=== PATIENT | male | born 1935 | race Caucasian/White ===

== ENCOUNTER 2021-01-03 15:47 | Observation (INO) ==
[2021-01-03] MEDS ORDERED: ONDANSETRON INJ 2 MG/ML 2 ML VIAL IV STA (16:34)
[2021-01-03] MEDS ORDERED: MoRPHine SULFATE 2 MG/ML CARP IV STA (16:34)
--- NOTE | 2021-01-03 16:40 | Emergency Department Note ---
History of Present Illness General Chief complaint: Fall Stated complaint: FALL Time Seen by Provider: 01/03/21 16:13 Source: patient and family (Son who is at the bedside) Mode of arrival: ambulatory Limitations: no limitations History of Present Illness Maximum Pain Intensity: 6 This patient is a 85-year-old male who comes in after falling down a hill. He was pushing a lawnmower and he says he tripped and rolled down 10 to 20 feet on a grassy hill. He did not get struck by the lumbar. He said he just slipped and fell. He denies that he lost consciousness or passed out prior. He had no symptoms prior he tells me. Afterwards he had mid lumbar back pain and some nausea. He denies any headache he said he may have scraped his head but denies headache or neck pain. He denies any facial trauma or teeth or dental trauma no malocclusion no change in vision no neck pain or stiffness. Denies chest pain s hortness breath or pleurisy. No abdominal pain. No extremity pain or numbness or weakness. His only complaint is pain in his lumbar back that goes into his legs at and hips at times. It hurts worse with movement. It is better if he rests. He has no history of back issues he does have a history of having some left hip pain but is never had any surgery on either. He is on no blood thinners. His Covid vaccine is up-to-date. Home Medications Medication Instructions Recorded Confirmed Type aspirin [Aspir-Low] 81 mg PO DAILY 01/03/21 01/03/21 History atenolol 50 mg PO DAILY 01/03/21 01/03/21 History escitalopram oxalate 15 mg PO DAILY 01/03/21 01/03/21 History lisinopril 5 mg PO DAILY 01/03/21 01/03/21 History multivitamin [Multiple Vitamins] 1 tab PO DAILY 01/03/21 01/03/21 History turmeric root extract 0 mg PO AMPM 01/03/21 01/03/21 History Allergies Allergy/AdvReac Type Severity Reaction Status Date / Time felodipine AdvReac Unknown DROWSINESS Unverified 01/03/21 21:32 Past Med/Surg History Medical History (Updated 01/03/21 @ 23:10 by Artur Mcclain MD) CKD (chronic kidney disease), stage III Depression Dyslipidemia GERD (gastroesophageal reflux disease) HTN (hypertension) Surgical History (Updated 01/03/21 @ 20:59 by Filomena Todd PA-C) H/O hernia repair History of cholecystectomy Family History (Updated 01/03/21 @ 20:59 by Filomena Todd PA-C) Other Cancer Diabetes Heart disease Social History (Updated 01/03/21 @ 20:59 by Filomena Todd PA-C) Smoking Status: Former smoker Hx Alcohol Use: No Hx Substance Use: No Feels Safe at Home: Yes Immunizations: Past medical historyhypertension. Denies cardiac disease, str shannan, diabetes. Family historyhe recently lost a son and grandson. Social history he does not smoke or drink or use drugs. He lives locally. His son tells me there is been a lot of family stress due to recent deaths of relatives Review of Systems A total of 10 systems reviewed and were otherwise negative Physical Exam Vital Signs Vital Signs - 24 hr 01/03/21 15:48 01/03/21 17:12 01/03/21 20:19 Temperature 36.8 C Temperature Source Temporal Artery Scan Pulse Rate 60 67 Pulse Rate [Apical] 66 67 Pulse Rhythm Regular Pulse Rhythm [Apical] Regular Pulse Strength [Apical] Normal Respiratory Rate 18 18 18 Respiratory Effort / Characteristics Non-Labored Spontaneous Respiratory Depth Normal Respiratory Pattern Regular Blood Pressure 146/92 H Blood Pressure [Left Arm] 144/89 H 149/87 H Blood Pressure Mean 110 Blood Pressure Mean [Left Arm] 107 107 Blood Pressure Position [Left Arm] Lying Pulse Oximetry 97 96 95 Oxygen Delivery Method Room Air Room Air Room Air Sepsis Recent Fever Within 48 Hours No Sepsis New/Unexplained Change in Mental Status No Sepsis Action Taken by Nursing No Action Required General: Well developed well nourished older male who is alert and orient x3 and appears younger than stated age in no acute distress, breathing comfortably on room air. Normal speech HEENT: Normal cephalic atraumatic. Pupils are equal round and reactive to light. Extraocular movements are intact. Oropharynx is pink with moist mucous membranes. No swelling of the mouth lips or tongue. Neck: Supple with a midline trachea. No meningeal signs or stiffness, no JVD or bruits. No Stridor. Chest: Clear to auscultation bilaterally. No wheezes or rhonchi. No increased work of breathing. Heart: Regular rate and rhythm without murmurs or gallops. Abdomen: Soft nontender, nondistended without rebound guarding or rigidity. Extremities: No cyanosis clubbing or edema. No calf tenderness or assymetry. No shortening or deformity Spine/Back. Mildly tender to palpation in the central mid to upper lumbar spine. No CVA tenderness. No bruising or external signs of trauma. Pain is exacerbated with movement Skin: Good turgor without rashes. Neurologic exam: Cranial nerves two through 12 are intact. Motor and sensation are intact and symmetrical throughout. Course Administered Medications Discontinued Medications Ioversol (Optiray 320 125ml) 119 ml IV ONCE ONE Stop: 01/03/21 18:16 Last Admin: 01/03/21 18:15 Dose: 119 ml Documented by: [id number] Ketorolac Tromethamine (Ketorolac Tromethamine 15 Mg/Ml Vial) 15 mg IV NOW ONE Stop: 01/03/21 21:11 Last Admin: 01/03/21 21:58 Dose: 15 mg Documented by: [id number] Lidocaine (Lidocaine 5% 1 Patch) Confirm Administered Dose 1 patch TD .STK-MED ONE Stop: 01/03/21 20:17 Last Admin: 01/03/21 20:18 Dose: 1 patch Documented by: [id number] Lisinopril (Lisinopril 2.5 Mg Tab) 2.5 mg PO ONE ONE Stop: 01/03/21 21:16 Last Admin: 01/03/21 21:58 Dose: 2.5 mg Documented by: [id number] Morphine Sulfate (Morphine Sulfate 2 Mg/Ml Carp) 2 mg IV NOW STA Stop: 01/03/21 16:35 Last Admin: 01/03/21 17:05 Dose: 2 mg Documented by: [id number] Ondansetron HCl (Ondansetron Inj 2 Mg/Ml 2 Ml Vial) 4 mg IV NOW STA Stop: 01/03/21 16:35 Last Admin: 01/03/21 17:05 Dose: 4 mg Documented by: [id number] Medical Decision Making Differential Diagnosis Trauma, internal injuries, syncope, arrhythmia, orthopedic injuries, spinal injuries, Covid, electrolyte or metabolic abnormality Medical Records Attestation: I reviewed the patient's medical records. Home Medications Current Medication List: was personally reviewed by me Laboratory Data Attestation: I reviewed the patient's lab results. Result diagrams: 01/03/21 17:08 01/03/21 17:08 Lab Results 01/03/21 01/03/21 01/03/21 Range/Units 17:08 17:08 17:08 WBC 9.17 (4.8-10.8) K/uL RBC 4.24 L (4.7-6.1) M/uL Hgb 13.7 L (14.0-18.0) g/dL POC Hgb (14.0-18.0) g/dl Hct 40.1 L (42-52) % POC Hct (42-52) % MCV 94.6 (80-100) fL MCH 32.3 (25-34) pg MCHC 34.2 (32-36) g/dL RDW Std Deviation 43.4 (36.4-46.3) fL RDW Coeff of Dean 12.7 (11.5-14.5) % Plt Count 213 (130-400) K/uL MPV 10.0 (7.4-10.4) fL Immature Gran % (Auto) 0.4 % Neut % (Auto) 69.9 % Lymph % (Auto) 19.6 % [place] % (Auto) 9.5 % Eos % (Auto) 0.5 % Baso % (Auto) 0.1 % Neut # (Auto) 6.40 (1.4-6.5) K/uL Lymph # (Auto) 1.80 (1.2-3.4) K/uL [place] # (Auto) 0.87 H (0.11-0.59) K/uL Eos # (Auto) 0.05 (0-0.5) K/uL Baso # (Auto) 0.01 (0-0.2) K/uL Immature Gran # (Auto) 0.04 H (0.00-0.02) K/uL PT 10.0 (9.0-12.0) Seconds INR 1.0 (0.9-1.1) APTT 21.7 (21.0-31.0) Seconds PTT Ratio 0.8 POC Sodium (135-144) mmol/L Sodium 135 L (136-145) mmol/L POC Potassium (3.3-5.0) mmol/L Potassium 4.7 (3.5-5.1) mmol/L POC Chloride (101-112) mmol/L Chloride 102 (98-107) mmol/L Carbon Dioxide 27 (21-32) mmol/L POC Total CO2 (24-31) mmol/L Anion Gap 6.0 (3-11) POC Anion Gap (16-25) mmol/L POC BUN (7-18) mg/dl BUN 19 H (7-18) mg/dl Creatinine 1.25 (0.6-1.4) mg/dl POC Creatinine (0.6-1.3) mg/dl Est Cr Clr Drug Dosing 43.2 ml/min Est GFR ( Amer) 60.5 ml/min Est GFR (Non-Af Amer) 52.2 ml/min BUN/Creatinine Ratio 15.1 (10-20) Glucose 93 (70-99) mg/dl POC Glucose (other) (70-99) mg/dl Calcium 9.8 (8.5-10.1) mg/dl POC Ioniz Calcium Nabila (1.12-1.32) mmol/l Magnesium 2.1 (1.8-2.4) mg/dl Total Bilirubin 0.7 (0.2-1) mg/dl AST 27 (15-37) U/L ALT 34 (12-78) U/L Alkaline Phosphatase 56 (45-117) U/L Troponin I < 0.015 (0-0.045) ng/ml Total Protein 8.0 (6.4-8.2) gm/dl Albumin 4.0 (3.4-5.0) gm/dl Globulin 4.0 (2.5-4.0) gm/dl Albumin/Globulin Ratio 1.0 (0.9-2) TSH 3.690 (0.300-4.500) uIu/ml 01/03/21 Range/Units 17:13 WBC (4.8-10.8) K/uL RBC (4.7-6.1) M/uL Hgb (14.0-18.0) g/dL POC Hgb 13.6 L (14.0-18.0) g/dl Hct (42-52) % POC Hct 40 L (42-52) % MCV (80-100) fL MCH (25-34) pg MCHC (32-36) g/dL RDW Std Deviation (36.4-46.3) fL RDW Coeff of Dean (11.5-14.5) % Plt Count (130-400) K/uL MPV (7.4-10.4) fL Immature Gran % (Auto) % Neut % (Auto) % Lymph % (Auto) % [place] % (Auto) % Eos % (Auto) % Baso % (Auto) % Neut # (Auto) (1.4-6.5) K/uL Lymph # (Auto) (1.2-3.4) K/uL [place] # (Auto) (0.11-0.59) K/uL Eos # (Auto) (0-0.5) K/uL Baso # (Auto) (0-0.2) K/uL Immature Gran # (Auto) (0.00-0.02) K/uL PT (9.0-12.0) Seconds INR (0.9-1.1) APTT (21.0-31.0) Seconds PTT Ratio POC Sodium 136 (135-144) mmol/L Sodium (136-145) mmol/L POC Potassium 5.0 (3.3-5.0) mmol/L Potassium (3.5-5.1) mmol/L POC Chloride 101 (101-112) mmol/L Chloride (98-107) mmol/L Carbon Dioxide (21-32) mmol/L POC Total CO2 23 L (24-31) mmol/L Anion Gap (3-11) POC Anion Gap 17.0 (16-25) mmol/L POC BUN 22 H (7-18) mg/dl BUN (7-18) mg/dl Creatinine (0.6-1.4) mg/dl POC Creatinine 1.3 (0.6-1.3) mg/dl Est Cr Clr Drug Dosing ml/min Est GFR ( Amer) ml/min Est GFR (Non-Af Amer) ml/min BUN/Creatinine Ratio (10-20) Glucose (70-99) mg/dl POC Glucose (other) 98 (70-99) mg/dl Calcium (8.5-10.1) mg/dl POC Ioniz Calcium [place] 1.14 (1.12-1.32) mmol/l Magnesium (1.8-2.4) mg/dl Total Bilirubin (0.2-1) mg/dl AST (15-37) U/L ALT (12-78) U/L Alkaline Phosphatase (45-117) U/L Troponin I (0-0.045) ng/ml Total Protein (6.4-8.2) gm/dl Albumin (3.4-5.0) gm/dl Globulin (2.5-4.0) gm/dl Albumin/Globulin Ratio (0.9-2) TSH (0.300-4.500) uIu/ml Imaging Data Radiologist's Impression: Abdomen/Pelvis CT 01/03/21 16:[address] WITH CONTRAST, ABDOMEN AND PELVIS CT WITH INTRAVENOUS CONTRAST CT DOSE: HISTORY: Back pain. fall TECHNIQUE: Multiaxial CT images of the chest were performed following the intravenous administration of contrast. A dose lowering technique was utilized adhering to the principles of ALARA. COMPARISON: None. FINDINGS: Chest CT: No acute fractures within the visualized osseous structures of the chest. No pneumothorax. Small amount of mucoid material within the trachea. Remaining central airways are patent. Calcified left hilar lymph nodes with a punctate calcified granuloma within the left lower lobe. No focal lung consolidations. Normal esophagus. No lymphadenopathy identified within the chest. The heart is normal in size. Normal caliber thoracic aorta with no evidence for a dissection. Severe calcified plaque within the coronary arteries. No pleural or pericardial effusions. The main pulmonary arteries are patent. No mediastinal hematoma. Abdomen/pelvis CT: Mild to moderate acute superior endplate compression fracture at L1 as well as the fracture through the tip of the L1 spinous process is again noted. This is better appreciated on the same day lumbar spine CT. No pneumoperitoneum. No pneumatosis. Tiny fat-containing right-sided umbilical hernia. Mild paravertebral edema at L1 likely due to the acute fracture. No retroperitoneal hematoma or lymphadenopathy. Cholecystectomy. This likely accounts for the mild bile duct dilatation. The main pancreatic duct is also distended distally measuring up to 5 mm. The main portal vein is patent. Punctate calcified granuloma seen within the spleen. The adrenal glands and kidneys are within normal limits. No hydronephrosis. There are few punctate calcifications within the pancreas suggestive of chronic pancreatitis. No evidence for acute pancreatitis. There is a 6.7 x 6.4 cm infrarenal abdominal aortic aneurysm. 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 The bladder is unremarkable. No pelvic free fluid. Colonic diverticulosis. No evidence for acute diverticulitis. No bowel wall thickening or obstruction. Normal appendix. IMPRESSION: 1. The L1 fractures are better appreciated on the same day lumbar spine CT. 2. No acute traumatic process within the chest. 3. A 6.7 x 6.4 cm infrarenal abdominal aortic aneurysm. Follow-up nonemergent vascular surgery consultation recommended. 4. 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 5. Additional findings as described above. ACT 112: Negative or not required by law. Electronically signed by: Gerald Hood M.D. 01/03/2021 7:[address] 01/03/21 16:[address] WITH CONTRAST, ABDOMEN AND PELVIS CT WITH INTRAVENOUS CONTRAST CT DOSE: HISTORY: Back pain. fall TECHNIQUE: Multiaxial CT images of the chest were performed following the intravenous administration of contrast. A dose lowering technique was utilized adhering to the principles of ALARA. COMPARISON: None. FINDINGS: Chest CT: No acute fractures within the visualized osseous structures of the chest. No pneumothorax. Small amount of mucoid material within the trachea. Remaining central airways are patent. Calcified left hilar lymph nodes with a punctate calcified granuloma within the left lower lobe. No focal lung consolidations. Normal esophagus. No lymphadenopathy identified within the chest. The heart is normal in size. Normal caliber thoracic aorta with no evidence for a dissection. Severe calcified plaque within the coronary arteries. No pleural or pericardial effusions. The main pulmonary arteries are patent. No mediastinal hematoma. Abdomen/pelvis CT: Mild to moderate acute superior endplate compression fracture at L1 as well as the fracture through the tip of the L1 spinous process is again noted. This is better appreciated on the same day lumbar spine CT. No pneumoperitoneum. No pneumatosis. Tiny fat-containing right-sided umbilical hernia. Mild paravertebral edema at L1 likely due to the acute fracture. No retroperitoneal hematoma or lymphadenopathy. Cholecystectomy. This likely accounts for the mild bile duct dilatation. The main pancreatic duct is also distended distally measuring up to 5 mm. The main portal vein is patent. Punctate calcified granuloma seen within the spleen. The adrenal glands and kidneys are within normal limits. No hydronephrosis. There are few punctate calcifications within the pancreas suggestive of chronic pancreatitis. No evidence for acute pancreatitis. There is a 6.7 x 6.4 cm infrarenal abdominal aortic aneurysm. 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 The bladder is unremarkable. No pelvic free fluid. Colonic diverticulosis. No evidence for acute diverticulitis. No bowel wall thickening or obstruction. Normal appendix. IMPRESSION: 1. The L1 fractures are better appreciated on the same day lumbar spine CT. 2. No acute traumatic process within the chest. 3. A 6.7 x 6.4 cm infrarenal abdominal aortic aneurysm. Follow-up nonemergent vascular surgery consultation recommended. 4. 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 5. Additional findings as described above. ACT 112: Negative or not required by law. Electronically signed by: Gerald Hood M.D. 01/03/2021 7:07 PM Chest X-Ray 01/03/21 16:32 XR chest 1V portable HISTORY: fall COMPARISON: Chest 09/02/2010. FINDINGS: No pneumothorax. No pleural effusions. The heart remains mildly enlarged. There is a tortuous thoracic aorta. Old, healed left-sided rib fractures, unchanged. No focal lung consolidations to suggest pneumonia. No evidence for pulmonary edema. IMPRESSION: No acute process. ACT 112: Negative or not required by law. Electronically signed by: Gerald Hood M.D. 01/03/2021 5:[address] 01/03/21 16:[address] with intravenous contrast CT DOSE: 642.41 mGy.cm HISTORY: Low back pain. trauma can recon from CT abd/pelvis TECHNIQUE: Multiaxial CT images of the lumbar spine were performed and reformatted in the sagittal and coronal plane following the intravenous administration of contrast. A dose lowering technique was utilized adhering to the principles of ALARA. COMPARISON: None. FINDINGS: There is an acute superior endplate compression fracture at L1. This demonstrates up to 20% loss of height anteriorly. No associated retropulsion. There is 5 mm of anterolisthesis of L4 and L5. Moderate to severe facet degenerative changes within the lower lumbar spine. Mild disc space narrowing at L4-L5. The sacrum appears intact. Possible small oblique fracture through the superior tip of the L1 spinous process. The pedicles and lamina of L1 appear intact. IMPRESSION: 1. An acute mild to moderate superior endplate compression fracture at L1. No associated retropulsion. 2. Possible small oblique fracture through the superior tip of the L1 spinous process. ACT 112: Negative or not required by law. Electronically signed by: Gerald Hood M.D. 01/03/2021 6:52 PM ECG Data Attestation: I personally reviewed and interpreted this ECG as follows: Indication: + weakness Rate (beats per minute): 67 Rhythm: + normal sinus ECG Intervals/blocks: + First degree AV block, + Normal QRS, + Normal QT and + Normal HI ECG ST segments: + Normal ST segments ECG Findings: + LVH; no PACs and no PVCs Comparison ECG Date: from (09/02/10) Change: no significant change MDM Narrative This Patient comes in as described above it it does sound like it was mechanical fall. The patient says that he slipped. His only complaint seems to be back pain. It does hurt worse with movement given his fall I did order a CAT scan of the chest abdomen and pelvis and with reconstructions of the lumbar spine. IV access was established blood work was obtained. The son talk to me outside the room after seeing the patient says that he has been under tremendous amount of stress lately. He is concerned that some of this could have played a role today. In light of this, I did do a cardiac type work-up as well. This included EKG and enzymes and a chest x-ray. He was reassessed frequently. I- STAT labs were obtained to get a quick creatinine prior to CAT scan. For pain, he was given morphine 2 mg IV and Zofran 4 mg IV. His son is at the bedside and driving. He has no significant electrolyte or metabolic abnormalities. He has nothing to suggest or arrhythmia. CAT scans of his chest abdomen pelvis to show a lumbar 1 fracture. He also has a large aneurysm which will need follow-up with vascular surgery. I do not think his back pain is from the aneurysm as he does have a new lumbar fracture but I do think he needs to be admitted for pain management and further treatment and evaluation. I have consulted Dr. Rowley to see him in the ER for these measures. Continuous cardiac monitoring: Given the patient fall, he was placed on a continuous radiographer cardiac catheterization call: ED an order was placed in the EMR. The patient was noted to be in normal sinus room with a pulse of 60 upon my interpretation. Impression & Plan Compression fx, lumbar spine, Fall, Back pain, AAA (abdominal aortic aneurysm), Lab test negative for COVID-19 virus Discharge Plan Visit Data Chief Complaint: Fall Stated Complaint: FALL ED Provider: Artur Mcclain Discharge Problem: Compression fx, lumbar spine, Fall, Back pain, AAA (abdominal aortic aneurysm), Lab test negative for COVID-19 virus Discharge Instructions Interventions: ED Discharge Assessment Last Done: 01/03/21 22:19 Discharge Problem: Compression fx, lumbar spine Qualifiers: Encounter type: initial encounter Lumbar vertebra fracture level: L1 Qualified Code(s): S32.010A - Wedge compression fracture of first lumbar vertebra, initial encounter for closed fracture Fall Qualifiers: Encounter type: initial encounter Qualified Code(s): W19.XXXA - Unspecified fall, initial encounter Back pain Qualifiers: Back pain location: low back pain Chronicity: acute Back pain laterality: midline Sciatica presence: without sciatica Qualified Code(s): M54.5 - Low back pain AAA (abdominal aortic aneurysm) Qualifiers: Presence of rupture: without rupture Qualified Code(s): I71.4 - Abdominal aortic aneurysm, without rupture
[2021-01-03 17:19] LABS: Basophils # (auto) 0.01 K/uL (0-0.2); Basophils % (auto) 0.1 %; Eosinophils # (auto) 0.05 K/uL (0-0.5); Eosinophils % (auto) 0.5 %; Hematocrit (blood only) 40.1 % (42-52); Hemoglobin 13.7 g/dL (14.0-18.0); Immature Granulocytes # (auto) 0.04 K/uL (0.00-0.02); Immature Granulocytes % (auto) 0.4 %; Lymphocytes % (auto) 19.6 %; Mean Corpuscular Hemoglobin 32.3 pg (25-34); Mean Corpuscular Hgb Conc 34.2 g/dL (32-36); Mean Corpuscular Volume 94.6 fL (80-100); Monocytes # (auto) 0.87 K/uL (0.11-0.59); Monocytes % (auto) 9.5 %; Neutrophils % (auto) 69.9 %; Platelet Count 213 K/uL (130-400); RDW Coefficient of Variation 12.7 % (11.5-14.5); RDW Standard Deviation 43.4 fL (36.4-46.3); Red Blood Count 4.24 M/uL (4.7-6.1); White Blood Count 9.17 K/uL (4.8-10.8)
[2021-01-03 17:27] LABS: iSTAT Creatinine 1.3 mg/dl (0.6-1.3); iSTAT Hemoglobin 13.6 g/dl (14.0-18.0); iSTAT Ionized Calcium 1.14 mmol/l (1.12-1.32)
[2021-01-03 17:36] LABS: Partial Thromboplastin Ratio 0.8; Partial Thromboplastin Time 21.7 Seconds (21.0-31.0)
--- NOTE | 2021-01-03 17:37 | XRay Report ---
XR chest 1V portable HISTORY: fall COMPARISON: Chest 09/02/2010. FINDINGS: No pneumothorax. No pleural effusions. The heart remains mildly enlarged. There is a tortuo us thoracic aorta. Old, healed left-sided rib fractures, unchanged. No focal lung consolidations to s uggest pneumonia. No evidence for pulmonary edema. IMPRESSION: No acute process. ACT 112: Negative or not required by law. Electronically signed by: Gerald Hood M.D. 01/03/2021 5:36 PM
[2021-01-03 17:42] LABS: Alanine Aminotransferase 34 U/L (12-78); Aspartate Aminotransferase 27 U/L (15-37); BUN Creatinine Ratio 15.1 (10-20); Blood Urea Nitrogen 19 mg/dl (7-18); Calcium 9.8 mg/dl (8.5-10.1); Carbon Dioxide 27 mmol/L (21-32); Chloride 102 mmol/L (98-107); Creatinine Clr Calc Pharmacy 43.2 ml/min; Est GFR (African American) 60.5 ml/min; Est GFR (Non-African American) 52.2 ml/min; Glucose 93 mg/dl (70-99); Magnesium 2.1 mg/dl (1.8-2.4); Potassium 4.7 mmol/L (3.5-5.1); Sodium 135 mmol/L (136-145)
[2021-01-03 17:52] LABS: Alkaline Phosphatase 56 U/L (45-117); Bilirubin,Total 0.7 mg/dl (0.2-1); Troponin I < 0.015 ng/ml (0-0.045)
[2021-01-03] MEDS ORDERED: OPTIRAY 320 125ml IV ONE (18:15)
--- NOTE | 2021-01-03 18:53 | CT Scan Report ---
LUMBAR SPINE CT with intravenous contrast CT DOSE: 642.41 mGy.cm HISTORY: Low back pain. trauma can recon from CT abd/pelvis TECHNIQUE: Multiaxial CT images of the lumbar spine were performed and reformatted in the sagittal an d coronal plane following the intravenous administration of contrast. A dose lowering technique was utilized adhering to the principles of ALARA. COMPARISON: None. FINDINGS: There is an acute superior endplate compression fracture at L1. This demonstrates up to 20% loss of height anteriorly. No associated retropulsion. There is 5 mm of anterolisthesis of L4 and L5 . Moderate to severe facet degenerative changes within the lower lumbar spine. Mild disc space narrow ing at L4-L5. The sacrum appears intact. Possible small oblique fracture through the superior tip of the L1 spinous process. The pedicles and lamina of L1 appear intact. IMPRESSION: 1. An acute mild to moderate superior endplate compression fracture at L1. No associated retropulsion . 2. Possible small oblique fracture through the superior tip of the L1 spinous process. ACT 112: Negative or not required by law. Electronically signed by: Gerald Hood M.D. 01/03/2021 6:52 PM
--- NOTE | 2021-01-03 19:08 | CT Scan Report ---
CHEST CT WITH CONTRAST, ABDOMEN AND PELVIS CT WITH INTRAVENOUS CONTRAST CT DOSE: HISTORY: Back pain. fall TECHNIQUE: Multiaxial CT images of the chest were performed following the intravenous administration of contrast. A dose lowering technique was utilized adhering to the principles of ALARA. COMPARISON: None. FINDINGS: Chest CT: No acute fractures within the visualized osseous structures of the chest. No pneumothorax. Small amount of mucoid material within the trachea. Remaining central airways are patent. Calcified l eft hilar lymph nodes with a punctate calcified granuloma within the left lower lobe. No focal lung c onsolidations. Normal esophagus. No lymphadenopathy identified within the chest. The heart is normal in size. Normal caliber thoracic aorta with no evidence for a dissection. Severe calcified plaque wit hin the coronary arteries. No pleural or pericardial effusions. The main pulmonary arteries are paten t. No mediastinal hematoma. Abdomen/pelvis CT: Mild to moderate acute superior endplate compression fracture at L1 as well as the fracture through the tip of the L1 spinous process is again noted. This is better appreciated on the same day lumbar spine CT. No pneumoperitoneum. No pneumatosis. Tiny fat-containing right-sided umbil ical hernia. Mild paravertebral edema at L1 likely due to the acute fracture. No retroperitoneal deysi romain or lymphadenopathy. Cholecystectomy. This likely accounts for the mild bile duct dilatation. The main pancreatic duct is also distended distally measuring up to 5 mm. The main portal vein is patent . Punctate calcified granuloma seen within the spleen. The adrenal glands and kidneys are within norm al limits. No hydronephrosis. There are few punctate calcifications within the pancreas suggestive of chronic pancreatitis. No evidence for acute pancreatitis. There is a 6.7 x 6.4 cm infrarenal abdomin al aortic aneurysm. 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 Th e bladder is unremarkable. No pelvic free fluid. Colonic diverticulosis. No evidence for acute divert iculitis. No bowel wall thickening or obstruction. Normal appendix. IMPRESSION: 1. The L1 fractures are better appreciated on the same day lumbar spine CT. 2. No acute traumatic process within the chest. 3. A 6.7 x 6.4 cm infrarenal abdominal aortic aneurysm. Follow-up nonemergent vascular surgery consul tation recommended. 4. 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 5. Additional findings as described above. ACT 112: Negative or not required by law. Electronically signed by: Gerald Hood M.D. 01/03/2021 7:07 PM
[2021-01-03] MEDS ORDERED: ACETAMINOPHEN 325 MG TAB PO PRN (20:00)
[2021-01-03] MEDS ORDERED: LIDOCAINE 5% 1 PATCH TD ONE (20:16)
[2021-01-03] MEDS ORDERED: SODIUM CHLORIDE 0.9% 1000ML 1,000 ML IV ONE (20:51)
--- NOTE | 2021-01-03 21:03 | History & Physical Report ---
Date of Service January 03, 2021 Assessment & Plan (1) Compression fx, lumbar spine: (2) Abnormal CT scan: (3) HTN (hypertension): (4) Depression: (5) CKD (chronic kidney disease), stage III: History, PMH, PE completed by Filomena Todd PA-C Assessment and Plan per Dr Velasquez. History of Present Illness Chief Complaint: Fall and back pain Primary Care Provider: Jermaine English MD Pt is 85 y/o M with PMH HTN, HLD, CKD III, GERD, depression presented to ER with complaint of fall and back pain. Patient states prior to arrival he was mowing grass with a push lawnmower when he lost his balance on a hill and fell and rolled down hill. Denies being struck with lawnmower. Patient states had instant pain to mid/lower back and was unable to get up. He reports his son was able to help get him up on his feet and he was able to walk with pain to back. Denies loss of consciousness. Denies neck pain, chest pain, abdominal pain, upper extremity pain, lower extremity pain or paresthesias. Denies fever/chills, diaphoresis, N/V/D/C, [place], dizziness, syncope, vision changes, CP, SOB, orthopnea, palpitations, cough, sore throat, choking, otalgia, rhinorrhea, extremity weakness, extremity edema, rashes, urinary symptoms. In ER had lumbar spine CT: An acute mild to moderate superior endplate compression fracture at L1. No associated retropulsion. Possible small oblique fracture through the superior tip of the L1 spinous process. Allergies Allergy/AdvReac Type Severity Reaction Status Date / Time felodipine AdvReac Unknown DROWSINESS Unverified 01/03/21 21:32 Home Medications Medication Instructions Recorded Confirmed Type aspirin [Aspir-Low] 81 mg PO DAILY 01/03/21 01/03/21 History atenolol 50 mg PO DAILY 01/03/21 01/03/21 History escitalopram oxalate 15 mg PO DAILY 01/03/21 01/03/21 History lisinopril 5 mg PO DAILY 01/03/21 01/03/21 History multivitamin [Multiple Vitamins] 1 tab PO DAILY 01/03/21 01/03/21 History turmeric root extract 0 mg PO AMPM 01/03/21 01/03/21 History Past Med/Surg History Medical History (Updated 01/03/21 @ 23:10 by Artur Mcclain MD) CKD (chronic kidney disease), stage III Depression Dyslipidemia GERD (gastroesophageal reflux disease) HTN (hypertension) Surgical History H/O hernia repair History of cholecystectomy Family History Other Cancer Diabetes Heart disease Social History Smoking Status: Former smoker Smoking End Date: pt states 50 years ago; Second Hand Exposure: No; Do You Dip or Chew Tobacco: No; Hx Alcohol Use: No Hx Substance Use: No Preferred Language: Amharic Communication Ability: Effective Library Paraprofessional Required: No Beliefs That Will Affect Care: None Current Living Situation: Family Current Living Situation Comment: Lives with sonOnesimo Other Information That Helps Us Care for You: No Feels Safe at Home: Yes Safety Concerns: Feels Safe At This Time Assistive Devices: Denture - Upper, Denture - Lower and Glasses Review of Systems Review of Systems: All systems reviewed & are unremarkable except as noted in HPI & below Physical Exam Physical Exam: General: no distress, WDWN Head: normocephalic, atraumatic Eyes: PERRL, EOM's intact, conjunctiva non-injected, anicteric ENT: normal inspection external ears, nose, mucous membranes moist Neck: supple, trachea midline, non-tender, ROM intact Lungs: clear, no respiratory distress, no wheezing/rhonchi/rales CV: RRR, +systolic murmur, no pretibial edema Abd: normal BS, soft, non-tender Back: +tenderness to palpation lower back over spinous process Ext: no cyanosis, no calf tenderness; pedal pushes and pulls intact bilaterally, sensation to light touch intact; ROM bilateral upper extremities intact Neuro: A&O x 3, no focal deficits noted, normal affect Skin: warm, dry Results & Data Results & Data ([facility]) Vital Signs (Past 12 Hours) Vital Signs Temp Pulse Pulse Resp BP BP Pulse Ox 01/03/21 20:19 67 18 149/87 H 95 01/03/21 17:12 67 66 18 144/89 H 96 01/03/21 15:48 36.8 C 60 18 146/92 H 97 Laboratory Results Short CBC 01/03/21 Range/Units 17:08 WBC 9.17 (4.8-10.8) K/uL Hgb 13.7 L (14.0-18.0) g/dL Hct 40.1 L (42-52) % Plt Count 213 (130-400) K/uL BMP 01/03/21 17:08 Sodium 135 L Potassium 4.7 Chloride 102 Carbon Dioxide 27 BUN 19 H Creatinine 1.25 Glucose 93 Calcium 9.8 Cardiac Enzymes 01/03/21 Range/Units 17:08 Troponin I < 0.015 (0-0.045) ng/ml Liver Function 01/03/21 Range/Units 17:08 Total Bilirubin 0.7 (0.2-1) mg/dl AST 27 (15-37) U/L ALT 34 (12-78) U/L Alkaline Phosphatase 56 (45-117) U/L Albumin 4.0 (3.4-5.0) gm/dl Diagnostic Findings Abdomen/Pelvis CT 01/03/21 16:[address] WITH CONTRAST, ABDOMEN AND PELVIS CT WITH INTRAVENOUS CONTRAST CT DOSE: HISTORY: Back pain. fall TECHNIQUE: Multiaxial CT images of the chest were performed following the intravenous administration of contrast. A dose lowering technique was utilized adhering to the principles of ALARA. COMPARISON: None. FINDINGS: Chest CT: No acute fractures within the visualized osseous structures of the chest. No pneumothorax. Small amount of mucoid material within the trachea. Remaining central airways are patent. Calcified left hilar lymph nodes with a punctate calcified granuloma within the left lower lobe. No focal lung consolidations. Normal esophagus. No lymphadenopathy identified within the chest. The heart is normal in size. Normal caliber thoracic aorta with no evidence for a dissection. Severe calcified plaque within the coronary arteries. No pleural or pericardial effusions. The main pulmonary arteries are patent. No mediastinal hematoma. Abdomen/pelvis CT: Mild to moderate acute superior endplate compression fracture at L1 as well as the fracture through the tip of the L1 spinous process is again noted. This is better appreciated on the same day lumbar spine CT. No pneumoperitoneum. No pneumatosis. Tiny fat-containing right-sided umbilical hernia. Mild paravertebral edema at L1 likely due to the acute fracture. No retroperitoneal hematoma or lymphadenopathy. Cholecystectomy. This likely accounts for the mild bile duct dilatation. The main pancreatic duct is also distended distally measuring up to 5 mm. The main portal vein is patent. Punctate calcified granuloma seen within the spleen. The adrenal glands and kidneys are within normal limits. No hydronephrosis. There are few punctate calcifications within the pancreas suggestive of chronic pancreatitis. No evidence for acute pancreatitis. There is a 6.7 x 6.4 cm infrarenal abdominal aortic aneurysm. 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 The bladder is unremarkable. No pelvic free fluid. Colonic diverticulosis. No evidence for acute diverticulitis. No bowel wall thickening or obstruction. Normal appendix. IMPRESSION: 1. The L1 fractures are better appreciated on the same day lumbar spine CT. 2. No acute traumatic process within the chest. 3. A 6.7 x 6.4 cm infrarenal abdominal aortic aneurysm. Follow-up nonemergent va scular surgery consultation recommended. 4. 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 5. Additional findings as described above. ACT 112: Negative or not required by law. Electronically signed by: Gerald Hood M.D. 01/03/2021 7:[address] 01/03/21 16:[address] WITH CONTRAST, ABDOMEN AND PELVIS CT WITH INTRAVENOUS CONTRAST CT DOSE: HISTORY: Back pain. fall TECHNIQUE: Multiaxial CT images of the chest were performed following the intravenous administration of contrast. A dose lowering technique was utilized adhering to the principles of ALARA. COMPARISON: None. FINDINGS: Chest CT: No acute fractures within the visualized osseous structures of the chest. No pneumothorax. Small amount of mucoid material within the trachea. Remaining central airways are patent. Calcified left hilar lymph nodes with a punctate calcified granuloma within the left lower lobe. No focal lung consolidations. Normal esophagus. No lymphadenopathy identified within the chest. The heart is normal in size. Normal caliber thoracic aorta with no evidence for a dissection. Severe calcified plaque within the coronary arteries. No pleural or pericardial effusions. The main pulmonary arteries are patent. No mediastinal hematoma. Abdomen/pelvis CT: Mild to moderate acute superior endplate compression fracture at L1 as well as the fracture through the tip of the L1 spinous process is again noted. This is better appreciated on the same day lumbar spine CT. No pneumoperitoneum. No pneumatosis. Tiny fat-containing right-sided umbilical hernia. Mild paravertebral edema at L1 likely due to the acute fracture. No retroperitoneal hematoma or lymphadenopathy. Cholecystectomy. This likely accounts for the mild bile duct dilatation. The main pancreatic duct is also distended distally measuring up to 5 mm. The main portal vein is patent. Punctate calcified granuloma seen within the spleen. The adrenal glands and kidneys are within normal limits. No hydronephrosis. There are few punctate calcifications within the pancreas suggestive of chronic pancreatitis. No evidence for acute pancreatitis. There is a 6.7 x 6.4 cm infrarenal abdominal aortic aneurysm. 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 The bladder is unremarkable. No pelvic free fluid. Colonic diverticulosis. No evidence for acute diverticulitis. No bowel wall thickening or obstruction. Normal appendix. IMPRESSION: 1. The L1 fractures are better appreciated on the same day lumbar spine CT. 2. No acute traumatic process within the chest. 3. A 6.7 x 6.4 cm infrarenal abdominal aortic aneurysm. Follow-up nonemergent vascular surgery consultation recommended. 4. 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 5. Additional findings as described above. ACT 112: Negative or not required by law. Electronically signed by: Gerald Hood M.D. 01/03/2021 7:07 PM Chest X-Ray 01/03/21 16:32 XR chest 1V portable HISTORY: fall COMPARISON: Chest 09/02/2010. FINDINGS: No pneumothorax. No pleural effusions. The heart remains mildly enlarged. There is a tortuous thoracic aorta. Old, healed left-sided rib fractures, unchanged. No focal lung consolidations to suggest pneumonia. No evidence for pulmonary edema. IMPRESSION: No acute process. ACT 112: Negative or not required by law. Electronically signed by: Gerald Hood M.D. 01/03/2021 5:[address] 01/03/21 16:[address] with intravenous contrast CT DOSE: 642.41 mGy.cm HISTORY: Low back pain. trauma can recon from CT abd/pelvis TECHNIQUE: Multiaxial CT images of the lumbar spine were performed and reformatted in the sagittal and coronal plane following the intravenous administration of contrast. A dose lowering technique was utilized adhering to the principles of ALARA. COMPARISON: None. FINDINGS: There is an acute superior endplate compression fracture at L1. This demonstrates up to 20% loss of height anteriorly. No associated retropulsion. There is 5 mm of anterolisthesis of L4 and L5. Moderate to severe facet degenerative changes within the lower lumbar spine. Mild disc space narrowing at L4-L5. The sacrum appears intact. Possible small oblique fracture through the superior tip of the L1 spinous process. The pedicles and lamina of L1 appear intact. IMPRESSION: 1. An acute mild to moderate superior endplate compression fracture at L1. No associated retropulsion. 2. Possible small oblique fracture through the superior tip of the L1 spinous process. ACT 112: Negative or not required by law. Electronically signed by: Gerald Hood M.D. 01/03/2021 6:52 PM Supervising Physician Co-Signing Physician Notes IM ATTENDING : Patient seen and examined. History obtained from patient and records. Preceding documentation by Ms. Filomena Todd PA-C reviewed. FINAL ASSESSMENT AND PLAN as follows : Lumbar compression fracture secondary to fall Hypertension, slight elevated secondary discomfort AAA (6.7cm x 6.4cm) incidental finding on imaging Chronic anemia, hemoglobin at baseline Past tobacco abuse OBS GMF Analgesia, Lidoderm patch trial Outpatient Vascular Surgery consultation for AAA DVT prophylaxis. Lovenox subcu Full code Patient son requesting updates from providers. Mr. Onesimo Olivares, contact #[phone]. Text document was generated using [employer] voice recognition software. It may contain grammatical or spelling errors. Kindly contact undersigned for clarification of any documentation item in question.
[2021-01-03] MEDS ORDERED: KETOROLAC TROMETHAMINE 15 MG/ML VIAL IV ONE (21:10)
[2021-01-03] MEDS ORDERED: lisinopril 2.5 MG TAB PO ONE (21:15)
[2021-01-03] MEDS ORDERED: HYDROmorphone INJ 0.5 MG/0.5 ML SYR IV PRN (22:52)
[2021-01-03] MEDS ORDERED: PROMETHAZINE HCL 6.25 MG in SODIUM CHLORIDE 0.9% 50 ML IV PRN (22:52)
[2021-01-03] MEDS ORDERED: IBUPROFEN 200 MG TAB PO PRN (22:52)
[2021-01-04] MEDS: traMADol HCL 50 MG TABLET PO PRN ×4 (00:17→15:22)
[2021-01-04 08:24] LABS: Basophils # (auto) 0.01 K/uL (0-0.2); Basophils % (auto) 0.2 %; Eosinophils # (auto) 0.11 K/uL (0-0.5); Hematocrit (blood only) 39.8 % (42-52); Hemoglobin 13.1 g/dL (14.0-18.0); Immature Granulocytes # (auto) 0.01 K/uL (0.00-0.02); Immature Granulocytes % (auto) 0.2 %; Lymphocytes # (auto) 1.23 K/uL (1.2-3.4); Lymphocytes % (auto) 21.9 %; Mean Corpuscular Hemoglobin 32.2 pg (25-34); Mean Corpuscular Hgb Conc 32.9 g/dL (32-36); Mean Corpuscular Volume 97.8 fL (80-100); Mean Platelet Volume 9.4 fL (7.4-10.4); Monocytes # (auto) 0.66 K/uL (0.11-0.59); Monocytes % (auto) 11.7 %; Platelet Count 192 K/uL (130-400); RDW Coefficient of Variation 12.7 % (11.5-14.5); RDW Standard Deviation 45.5 fL (36.4-46.3); Red Blood Count 4.07 M/uL (4.7-6.1); White Blood Count 5.62 K/uL (4.8-10.8)
[2021-01-04 08:57] LABS: BUN Creatinine Ratio 15.7 (10-20); Calcium 8.9 mg/dl (8.5-10.1); Est GFR (African American) 66.9 ml/min; Est GFR (Non-African American) 57.7 ml/min; Potassium 4.6 mmol/L (3.5-5.1)
[2021-01-04] MEDS ORDERED: ENOXAPARIN INJ 30 MG/0.3 ML SYR SQ SCH (09:00)
[2021-01-04] MEDS ORDERED: ESCITALOPRAM OXALATE 10 MG TAB PO SCH (09:00)
[2021-01-04] MEDS ORDERED: ATENOLOL 50 MG TABLET PO SCH (09:00)
[2021-01-04] MEDS ORDERED: lisinopril 5 MG TAB PO SCH (09:00)
--- NOTE | 2021-01-04 10:57 | Electrocardiogram Report ---
Test Reason : Blood Pressure : / mmHG Vent. Rate : 067 BPM Atrial Rate : 067 BPM P-R Int : 238 ms QRS Dur : 102 ms QT Int : 408 ms P-R-T Axes : 023 -38 046 degrees QTc Int : 431 ms Sinus rhythm with 1st degree A-V block Left axis deviation Voltage criteria for left ventricular hypertrophy Nonspecific T wave abnormality Abnormal ECG When compared with ECG of 02-SEP-2010 04:56, MN interval has increased Confirmed by Abe Franklin ([id number]) on 01/04/2021 10:57:01 AM Referred By: REFERRED SELF Confirmed By:Darwin Franklin
--- NOTE | 2021-01-04 13:39 | Hospitalist Progress Note ---
Date of Service January 04, 2021 Assessment & Plan (1) Compression fx, lumbar spine: (2) Abnormal CT scan: (3) HTN (hypertension): (4) Depression: (5) CKD (chronic kidney disease), stage III: History, PMH, PE completed by Filomena Todd PA-C Assessment and Plan per Dr Velasquez. Admission and Anticipated Discharge Date Admission Date: January 03, 2021 Results & Data Results & Data ([facility]) Vital Signs (Past 12 Hours) Vital Signs Temp Pulse Pulse Resp BP Pulse Ox 01/04/21 09:13 60 01/04/21 07:45 36.9 C 59 L 16 151/89 H 94 01/04/21 05:32 36.9 C 59 L 17 133/81 95 Laboratory Results Short CBC 01/03/21 01/04/21 Range/Units 17:08 08:07 WBC 9.17 5.62 (4.8-10.8) K/uL Hgb 13.7 L 13.1 L (14.0-18.0) g/dL Hct 40.1 L 39.8 L (42-52) % Plt Count 213 192 (130-400) K/uL BMP 01/03/21 01/04/21 17:08 08:07 Sodium 135 L 134 L Potassium 4.7 4.6 Chloride 102 103 Carbon Dioxide 27 27 BUN 19 H 18 Creatinine 1.25 1.15 Glucose 93 119 H Calcium 9.8 8.9 Cardiac Enzymes 01/03/21 Range/Units 17:08 Troponin I < 0.015 (0-0.045) ng/ml Liver Function 01/03/21 Range/Units 17:08 Total Bilirubin 0.7 (0.2-1) mg/dl AST 27 (15-37) U/L ALT 34 (12-78) U/L Alkaline Phosphatase 56 (45-117) U/L Albumin 4.0 (3.4-5.0) gm/dl Medications Administered Current Inpatient Medications Acetaminophen (Acetaminophen 325 Mg Tab) 650 mg PO Q6H PRN PRN Reason: Fever/pain Stop: 02/02/21 19:59 Atenolol (Atenolol 50 Mg Tablet) 50 mg PO DAILY ARYAN Stop: 02/03/21 08:59 Last Admin: 01/04/21 09:11 Dose: 50 mg Documented by: Enoxaparin Sodium (Enoxaparin Inj 30 Mg/0.3 Ml Syr) 30 mg SQ QAM ARYAN Stop: 02/03/21 08:59 Last Admin: 01/04/21 09:12 Dose: 30 mg Documented by: Escitalopram Oxalate (Escitalopram Oxalate 10 Mg Tab) 10 mg PO DAILY ARYAN Stop: 02/03/21 08:59 Last Admin: 01/04/21 09:11 Dose: 10 mg Documented by: Hydromorphone HCl (Hydromorphone Inj 0.5 Mg/0.5 Ml Syr) 0.5 mg IV Q3H PRN PRN Reason: Pain Stop: 01/17/21 22:51 Sodium Chloride (Nss 1000ml) 1,000 mls @ 50 mls/hr IV .Q20H ONE Stop: 01/04/21 16:50 Last Admin: 01/03/21 23:05 Dose: 50 mls/hr Documented by: Promethazine HCl 6.25 mg/ (Sodium Chloride) 50.25 mls @ 201 mls/hr IV Q6H PRN PRN Reason: Nausea And Vomiting Stop: 02/02/21 22:51 Ibuprofen (Ibuprofen 200 Mg Tab) 200 mg PO Q6H PRN PRN Reason: Mild Pain Stop: 02/02/21 22:51 Lidocaine (Lidocaine 5% 1 Patch) 1 patch TD Q24H [facility] Stop: 02/03/21 19:59 Lisinopril (Lisinopril 5 Mg Tab) 5 mg PO DAILY [facility] Stop: 02/03/21 08:59 Last Admin: 01/04/21 09:11 Dose: 5 mg Documented by: Miscellaneous (Remove Lidoderm Patch) 1 ea N/A Q24H ARYAN Stop: 02/03/21 07:59 Last Admin: 01/04/21 09:12 Dose: 1 ea Documented by: Tramadol HCl (Tramadol Hcl 50 Mg Tablet) 25 - 50 mg PO Q4H PRN PRN Reason: Pain Stop: 02/02/21 19:59 Last Admin: 01/04/21 09:27 Dose: 50 mg Documented by: (1) Compression fx, lumbar spine Encounter type: initial encounter Lumbar vertebra fracture level: L1 Qualified Code(s): S32.010A - Wedge compression fracture of first lumbar vertebra, initial encounter for closed fracture
--- NOTE | 2021-01-04 16:08 | Discharge Summary ---
Date of Service January 04, 2021 Admission HPI Per Admitting Provider Pt is 85 y/o M with PMH HTN, HLD, CKD III, GERD, depression presented to ER with complaint of fall and back pain. Patient states prior to arrival he was mowing grass with a push lawnmower when he lost his balance on a hill and fell and rolled down hill. Denies being struck with lawnmower. Patient states had instant pain to mid/lower back and was unable to get up. He reports his son was able to help get him up on his feet and he was able to walk with pain to back. Denies loss of consciousness. Denies neck pain, chest pain, abdominal pain, upper extremity pain, lower extremity pain or paresthesias. Denies fever/chills, diaphoresis, N/V/D/C, [place], dizziness, syncope, vision changes, CP, SOB, orthopnea, palpitations, cough, sore throat, choking, otalgia, rhinorrhea, extremity weakness, extremity edema, rashes, urinary symptoms. In ER had lumbar spine CT: An acute mild to moderate superior endplate compression fracture at L1. No associated retropulsion. Possible small oblique fracture through the superior tip of the L1 spinous process. Admission Exam Per Admitting Provider General: no distress, WDWN Head: normocephalic, atraumatic Eyes: PERRL, EOM's intact, conjunctiva non-injected, anicteric ENT: normal inspection external ears, nose, mucous membranes moist Neck: supple, trachea midline, non-tender, ROM intact Lungs: clear, no respiratory distress, no wheezing/rhonchi/rales CV: RRR, +systolic murmur, no pretibial edema Abd: normal BS, soft, non-tender Back: +tenderness to palpation lower back over spinous process Ext: no cyanosis, no calf tenderness; pedal pushes and pulls intact bilaterally, sensation to light touch intact; ROM bilateral upper extremities intact Neuro: A&O x 3, no focal deficits noted, normal affect Skin: warm, dry Principal Diagnosis L1 compression fracture Discharge Exam CONSTITUTIONAL: WNWD, vitals as above, generally well-appearing EYES: normal conjunctivae, no scleral icterus ENT: external ear and nose normal, MMM RESPIRATORY: clear to auscultation bilaterally, no crackles, rales or wheezes, normal respiratory effort CARDIOVASCULAR: regular rate and rhythm, S1 and 2 heard without murmurs, gallops or rubs, no JVD, no peripheral edema MUSCULOSKELETAL: strength 5/5 in lower extremities, head is normocephalic and atraumatic, neck supple, normal palpation of chest wall without tenderness. No paraspinal TTP in lumbar area, Some TTP of spinous process over L1, no bruising SKIN: warm and dry NEUROLOGIC: patellar DTRs 2+ bilat. CN 2-12 grossly intact, no sensory deficit, normal cognition, normal speech, no tremor. Ambulates independently. Can get up independently. Neg SLR test bilaterally PSYCHIATRIC: alert cooperative and oriented to person, place and time. Discharge Data Allergies Allergy/AdvReac Type Severity Reaction Status Date / Time felodipine AdvReac Unknown DROWSINESS Unverified 01/03/21 21:32 Consultations 01/03/21 20:07 ED Decision to Admit Stat 01/04/21 08:49 Consult Orthopedic Surgery Routine Ordered Studies Laboratory Results WBC 5.62 K/uL (4.8-10.8) 01/04/21 08:07 RBC 4.07 M/uL (4.7-6.1) L 01/04/21 08:07 Hgb 13.1 g/dL (14.0-18.0) L 01/04/21 08:07 POC Hgb 13.6 g/dl (14.0-18.0) L 01/03/21 17:13 Hct 39.8 % (42-52) L 01/04/21 08:07 POC Hct 40 % (42-52) L 01/03/21 17:13 MCV 97.8 fL (80-100) 01/04/21 08:07 MCH 32.2 pg (25-34) 01/04/21 08:07 MCHC 32.9 g/dL (32-36) 01/04/21 08:07 RDW Std Deviation 45.5 fL (36.4-46.3) 01/04/21 08:07 RDW Coeff of Dean 12.7 % (11.5-14.5) 01/04/21 08:07 Plt Count 192 K/uL (130-400) 01/04/21 08:07 MPV 9.4 fL (7.4-10.4) 01/04/21 08:07 Immature Gran % (Auto) 0.2 % 01/04/21 08:07 Neut % (Auto) 64.0 % 01/04/21 08:07 Lymph % (Auto) 21.9 % 01/04/21 08:07 [place] % (Auto) 11.7 % 01/04/21 08:07 Eos % (Auto) 2.0 % 01/04/21 08:07 Baso % (Auto) 0.2 % 01/04/21 08:07 Neut # (Auto) 3.60 K/uL (1.4-6.5) 01/04/21 08:07 Lymph # (Auto) 1.23 K/uL (1.2-3.4) 01/04/21 08:07 [place] # (Auto) 0.66 K/uL (0.11-0.59) H 01/04/21 08:07 Eos # (Auto) 0.11 K/uL (0-0.5) 01/04/21 08:07 Baso # (Auto) 0.01 K/uL (0-0.2) 01/04/21 08:07 Immature Gran # (Auto) 0.01 K/uL (0.00-0.02) 01/04/21 08:07 PT 10.0 Seconds (9.0-12.0) 01/03/21 17:08 INR 1.0 (0.9-1.1) 01/03/21 17:08 APTT 21.7 Seconds (21.0-31.0) 01/03/21 17:08 PTT Ratio 0.8 01/03/21 17:08 POC Sodium 136 mmol/L (135-144) 01/03/21 17:13 Sodium 134 mmol/L (136-145) L 01/04/21 08:07 POC Potassium 5.0 mmol/L (3.3-5.0) 01/03/21 17:13 Potassium 4.6 mmol/L (3.5-5.1) 01/04/21 08:07 POC Chloride 101 mmol/L (101-112) 01/03/21 17:13 Chloride 103 mmol/L (98-107) 01/04/21 08:07 Carbon Dioxide 27 mmol/L (21-32) 01/04/21 08:07 POC Total CO2 23 mmol/L (24-31) L 01/03/21 17:13 Anion Gap 5.0 (3-11) 01/04/21 08:07 POC Anion Gap 17.0 mmol/L (16-25) 01/03/21 17:13 POC BUN 22 mg/dl (7-18) H 01/03/21 17:13 BUN 18 mg/dl (7-18) 01/04/21 08:07 Creatinine 1.15 mg/dl (0.6-1.4) 01/04/21 08:07 POC Creatinine 1.3 mg/dl (0.6-1.3) 01/03/21 17:13 Est Cr Clr Drug Dosing 47.0 ml/min 01/04/21 08:07 Est GFR ( Amer) 66.9 ml/min 01/04/21 08:07 Est GFR (Non-Af Amer) 57.7 ml/min 01/04/21 08:07 BUN/Creatinine Ratio 15.7 (10-20) 01/04/21 08:07 Glucose 119 mg/dl (70-99) H 01/04/21 08:07 POC Glucose (other) 98 mg/dl (70-99) 01/03/21 17:13 Calcium 8.9 mg/dl (8.5-10.1) 01/04/21 08:07 POC Ioniz Calcium [place] 1.14 mmol/l (1.12-1.32) 01/03/21 17:13 Magnesium 2.1 mg/dl (1.8-2.4) 01/03/21 17:08 Total Bilirubin 0.7 mg/dl (0.2-1) 01/03/21 17:08 AST 27 U/L (15-37) 01/03/21 17:08 ALT 34 U/L (12-78) 01/03/21 17:08 Alkaline Phosphatase 56 U/L (45-117) 01/03/21 17:08 Troponin I < 0.015 ng/ml (0-0.045) 01/03/21 17:08 Total Protein 8.0 gm/dl (6.4-8.2) 01/03/21 17:08 Albumin 4.0 gm/dl (3.4-5.0) 01/03/21 17:08 Globulin 4.0 gm/dl (2.5-4.0) 01/03/21 17:08 Albumin/Globulin Ratio 1.0 (0.9-2) 01/03/21 17:08 TSH 3.690 uIu/ml (0.300-4.500) 01/03/21 17:08 COVID-19 Eval Order Covid19 [facility] 01/03/21 Unknown SARS-CoV-2, RNA, NAAT NEGATIVE (NEGATIVE) 01/03/21 Unknown Impressions Abdomen/Pelvis CT 01/03/21 16:[address] WITH CONTRAST, ABDOMEN AND PELVIS CT WITH INTRAVENOUS CONTRAST CT DOSE: HISTORY: Back pain. fall TECHNIQUE: Multiaxial CT images of the chest were performed following the intravenous administration of contrast. A dose lowering technique was utilized adhering to the principles of ALARA. COMPARISON: None. FINDINGS: Chest CT: No acute fractures within the visualized osseous structures of the chest. No pneumothorax. Small amount of mucoid material within the trachea. Remaining central airways are patent. Calcified left hilar lymph nodes with a punctate calcified granuloma within the left lower lobe. No focal lung consolidations. Normal esophagus. No lymphadenopathy identified within the chest. The heart is normal in size. Normal caliber thoracic aorta with no evidence for a dissection. Severe calcified plaque within the coronary arteries. No pleural or pericardial effusions. The main pulmonary arteries are patent. No mediastinal hematoma. Abdomen/pelvis CT: Mild to moderate acute superior endplate compression fracture at L1 as well as the fracture through the tip of the L1 spinous process is again noted. This is better appreciated on the same day lumbar spine CT. No pneumoperitoneum. No pneumatosis. Tiny fat-containing right-sided umbilical hernia. Mild paravertebral edema at L1 likely due to the acute fracture. No retroperitoneal hematoma or lymphadenopathy. Cholecystectomy. This likely accounts for the mild bile duct dilatation. The main pancreatic duct is also distended distally measuring up to 5 mm. The main portal vein is patent. Punctate calcified granuloma seen within the spleen. The adrenal glands and kidneys are within normal limits. No hydronephrosis. There are few punctate calcifications within the pancreas suggestive of chronic pancreatitis. No evidence for acute pancreatitis. There is a 6.7 x 6.4 cm infrarenal abdominal aortic aneurysm. 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 The bladder is unremarkable. No pelvic free fluid. Colonic diverticulosis. No evidence for acute diverticulitis. No bowel wall thickening or obstruction. Normal appendix. IMPRESSION: 1. The L1 fractures are better appreciated on the same day lumbar spine CT. 2. No acute traumatic process within the chest. 3. A 6.7 x 6.4 cm infrarenal abdominal aortic aneurysm. Follow-up nonemergent vascular surgery consultation recommended. 4. 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 5. Additional findings as described above. ACT 112: Negative or not required by law. Electronically signed by: Gerald Hood M.D. 01/03/2021 7:[address] 01/03/21 16:[address] WITH CONTRAST, ABDOMEN AND PELVIS CT WITH INTRAVENOUS CONTRAST CT DOSE: HISTORY: Back pain. fall TECHNIQUE: Multiaxial CT images of the chest were performed following the intravenous administration of contrast. A dose lowering technique was utilized adhering to the principles of ALARA. COMPARISON: None. FINDINGS: Chest CT: No acute fractures within the visualized osseous structures of the chest. No pneumothorax. Small amount of mucoid material within the trachea. Remaining central airways are patent. Calcified left hilar lymph nodes with a punctate calcified granuloma within the left lower lobe. No focal lung consolidations. Normal esophagus. No lymphadenopathy identified within the chest. The heart is normal in size. Normal caliber thoracic aorta with no evidence for a dissection. Severe calcified plaque within the coronary arteries. No pleural or pericardial effusions. The main pulmonary arteries are patent. No mediastinal hematoma. Abdomen/pelvis CT: Mild to moderate acute superior endplate compression fracture at L1 as well as the fracture through the tip of the L1 spinous process is again noted. This is better appreciated on the same day lumbar spine CT. No pneumoperitoneum. No pneumatosis. Tiny fat-containing right-sided umbilical hernia. Mild paravertebral edema at L1 likely due to the acute fracture. No retroperitoneal hematoma or lymphadenopathy. Cholecystectomy. This likely accounts for the mild bile duct dilatation. The main pancreatic duct is also distended distally measuring up to 5 mm. The main portal vein is patent. Punctate calcified granuloma seen within the spleen. The adrenal glands and kidneys are within normal limits. No hydronephrosis. There are few punctate calcifications within the pancreas suggestive of chronic pancreatitis. No evidence for acute pancreatitis. There is a 6.7 x 6.4 cm infrarenal abdominal aortic aneurysm. 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 The bladder is unremarkable. No pelvic free fluid. Colonic diverticulosis. No evidence for acute diverticulitis. No bowel wall thickening or obstruction. Normal appendix. IMPRESSION: 1. The L1 fractures are better appreciated on the same day lumbar spine CT. 2. No acute traumatic process within the chest. 3. A 6.7 x 6.4 cm infrarenal abdominal aortic aneurysm. Follow-up nonemergent vascular surgery consultation recommended. 4. 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 5. Additional findings as described above. ACT 112: Negative or not required by law. Electronically signed by: Gerald Hood M.D. 01/03/2021 7:07 PM Chest X-Ray 01/03/21 16:32 XR chest 1V portable HISTORY: fall COMPARISON: Chest 09/02/2010. FINDINGS: No pneumothorax. No pleural effusions. The heart remains mildly enlarged. There is a tortuous thoracic aorta. Old, healed left-sided rib fractures, unchanged. No focal lung consolidations to suggest pneumonia. No evidence for pulmonary edema. IMPRESSION: No acute process. ACT 112: Negative or not required by law. Electronically signed by: Gerald Hood M.D. 01/03/2021 5:[address] 01/03/21 16:[address] with intravenous contrast CT DOSE: 642.41 mGy.cm HISTORY: Low back pain. trauma can recon from CT abd/pelvis TECHNIQUE: Multiaxial CT images of the lumbar spine were performed and reformatted in the sagittal and coronal plane following the intravenous administration of contrast. A dose lowering technique was utilized adhering to the principles of ALARA. COMPARISON: None. FINDINGS: There is an acute superior endplate compression fracture at L1. This demonstrates up to 20% loss of height anteriorly. No associated retropulsion. There is 5 mm of anterolisthesis of L4 and L5. Moderate to severe facet degenerative changes within the lower lumbar spine. Mild disc space narrowing at L4-L5. The sacrum appears intact. Possible small oblique fracture through the superior tip of the L1 spinous process. The pedicles and lamina of L1 appear intact. IMPRESSION: 1. An acute mild to moderate superior endplate compression fracture at L1. No associated retropulsion. 2. Possible small oblique fracture through the superior tip of the L1 spinous process. ACT 112: Negative or not required by law. Electronically signed by: Gerald Hood M.D. 01/03/2021 6:52 PM Hospital Course (1) Compression fx, lumbar spine: (2) Abnormal CT scan: (3) CKD (chronic kidney disease), stage III: The patient is an 85-year-old man presented to the ER after a lawnmower accident causing him back pain. Work-up revealed an acute mild to moderate superior endplate compression fracture at L1 with no associated retropulsion and a possible small oblique fracture through the superior tip of the L1 spinous process. He was admitted to the hospital service for pain control and observation. The following day he was ambulating without issue and reporting improvement in pain. He was requesting to go home. The case was peripherally discussed with orthopedic spine surgeon on-call. The patient was given a follow-up time after the weekend to come in for x-rays and fitting of a brace. He was given stool softeners and pain medication as needed and discharged in stable condition. He was also given instructions not to lift anything heavier than a coffee cup and not to push or pull anything, and not to drive. Also of note, during his initial trauma work-up which included a CT of the chest abdomen and pelvis with intravenous contrast, he was found to have a 6.7 x 6.4 cm infrarenal abdominal aortic aneurysm. Follow-up not emergently with vascular surgery was recommended. 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 There was no acute traumatic process found within the chest. Close primary care follow-up was recommended. Total Time Total Time Spent Total Time Spent (In Minutes): 60 Total Time Includes: Examination of the Patient, Discharge Planning, Medication Reconciliation and Communication With Other Providers Discharge Plan Discharge Items Patient Disposition: Home - Self-Care Reason For Visit: LUMBAR COMP FX Discharge Diagnosis: L1 compression fracture Condition on Discharge: Good Activity: As commented below Lifting: No more than 5 pounds Bathing: No limitations Exercise/Sports: None Weightbearing: Full weightbearing Non-emergency contact: Primary Care Provider Call non-emergency contact if: you have any medication questions, your symptoms worsen, your pain is not controlled, your pain is worsening, your pain is unusual for you, your pain is concerning for you and you have a fever Follow-up/Referrals: Jermaine English MD [Primary Care Provider] - Diet: Heart Healthy Addtl Attending Provider Instructions: You are being given a medication called tramadol which is a mild narcotic to help with pain. You may take this pill up to every 6 hours as needed for pain. It is recommended that you take [id number] Tylenol up to 1000 mg every 8 hours but do not exceed 3000 mg in a 24-hour period. Please call the office of -Dr. Juan Crowe -Orthopedic Spine on Wednesday and confirm that you will be coming in around noon for x-rays and a brace fitting. His office is at [address] [place] [address], [id number]. The phone number is [phone] Until that time please use the pain medications and stool softeners given as narcotics and this fracture may cause some constipation. Please do not lift anything heavier than a coffee cup. Do not push or pull anything. Do not drive until after your follow-up on Wednesday. During your admission a chest CT (CAT scan) was performed revealing an incidental 6.7 x 6.4 cm infrarenal abdominal and aortic aneurysm. Follow-up with a vascular surgeon nonurgently is recommended. Please obtain a referral from your primary care physician for this. It is recommended that you follow-up with your primary care doctor within 1 week of hospital discharge to ensure you are still doing well after going home and your pain is controlled. It was a pleasure taking care of you! Please call if you have any questions or problems. You can reach a [facility] hospitalist on duty at [facility] 24 hours a day by calling [phone]. Take care of yourself. Marion Ledesma DO [facility] Hospitalist Pending Studies at Discharge: No Stand-Alone Forms: [facility], Opioid Pain Management Medications and DC Order Prescriptions: New docusate sodium [Colace] 100 mg capsule 100 mg PO BID Qty: 60 RF: 0 tramadol 50 mg tablet 50 mg PO Q6H PRN (Reason: pain) Qty: 30 RF: 0 lidocaine 5 % Adhesive Patch,Medicated 1 patch transdermal Q24H PRN (Reason: back pain) Qty: 15 RF: 0 Continued lisinopril 5 mg tablet 5 mg PO DAILY RF: 0 atenolol 50 mg tablet 50 mg PO DAILY RF: 0 escitalopram oxalate 10 mg tablet 15 mg PO DAILY RF: 0 multivitamin [Multiple Vitamins] Tablet 1 tab PO DAILY RF: 0 aspirin 81 mg Tablet,Delayed Release (Dr/Ec) 81 mg PO DAILY RF: 0 turmeric root extract 500 mg Capsule 0 mg PO AMPM RF: 0 Discharge Orders: Discharge Order (Routine); Ordered 01/04/21 Ordered By: Marion Ledesma Admission Data Admit Date/Time: 01/03/21 21:13 Attending Provider: Marion Ledesma Admit Provider: Mauro Velasquez Primary Care Provider: Jermaine English Other Interventions: Discharge Summary Assessment (RN) Last Done: 01/04/21 15:35
[2021-01-04] MEDS ORDERED: LIDOCAINE 5% 1 PATCH TD SCH (20:00)
== END 2021-01-04 17:00 | disposition home or self-care (01) ==
LOC: 3E 15:47 → ED 15:47 → SUATTDRO 21:13
DX: K21.9 Gastro-esophageal reflux disease without esophagitis; N18.30 Chronic kidney disease, stage 3 unspecified; S32.010A Wedge compression fracture of first lumbar vertebra, initial encounter for closed fracture; E78.5 Hyperlipidemia, unspecified; Y93.H9 Activity, other involving exterior property and land maintenance, building and construction; W17.81XA Fall down embankment (hill), initial encounter; Z88.8 Allergy status to other drugs, medicaments and biological substances; I71.4 Abdominal aortic aneurysm, without rupture; Z87.891 Personal history of nicotine dependence; I12.9 Hypertensive chronic kidney disease with stage 1 through stage 4 chronic kidney disease, or unspecified chronic kidney disease; Z20.822 Contact with and (suspected) exposure to COVID-19

== ENCOUNTER 2023-11-04 18:11 | Observation (INO) ==
--- NOTE | 2023-11-04 19:09 | Emergency Department Note ---
History of Present Illness General Chief complaint: Hip Pain Stated complaint: FELL, LT HIP PAIN Time Seen by Provider: 11/04/23 18:58 History of Present Illness Maximum Pain Intensity: 8 NAME: CITLALY TRIPP AGE: 88 SEX: M : 1935 ARRIVES VIA: Walk-In INFORMANT: Patient ED PROVIDER(S): JESSICA Palmer, Ronny Hernadez MD The patient is a pleasant 88-year-old male who arrives to the emergency department with his 2 family members for evaluation of left hip pain. He reports today at 2:30 PM he was working on a tractor when he stepped off onto a another piece of equipment and fell to the ground. He reports he landed on his left hip, he denies head strike, loss of consciousness, precipitating events or anticoagulants. He reports he is unable to bear weight, he states there is a large lump on the left lateral hip, tender to palpation. He also reports a history of a large AAA, however he denies any abdominal pain, chest pain, nausea, dizziness, vomiting at this time. Home Medications Medication Instructions Recorded Confirmed Type atenolol 50 mg tablet 50 mg PO QAM 01/03/21 11/04/23 History lisinopril 5 mg tablet 5 mg PO QAM 01/03/21 11/04/23 History ascorbic acid (vitamin C) 500 mg 500 mg PO DAILY 11/04/23 11/04/23 History tablet (Vitamin C) escitalopram oxalate 20 mg tablet 20 mg PO QAM 11/04/23 11/04/23 History magnesium 200 mg tablet 400 mg PO DAILY 11/04/23 11/04/23 History mirabegron 25 mg tablet,extended 25 mg PO DAILY 11/04/23 11/04/23 History release 24 hr (Myrbetriq) multivitamin 1 tab PO QAM 11/04/23 11/04/23 History vit C 250 mg-vit E 90 mg-zinc 40 1 tab PO AMHS 11/04/23 11/04/23 History mg-copper 1 et-[id number] capsule (PreserVision AREDS-2) Allergies Allergy/AdvReac Type Severity Reaction Status Date / Time felodipine AdvReac Unknown DROWSINESS Unverified 11/04/23 21:38 Past Med/Surg History Medical History Depression HTN (hypertension) CKD (chronic kidney disease), stage III AAA (abdominal aortic aneurysm) Abnormal CT scan Compression fx, lumbar spine GERD (gastroesophageal reflux disease) Dyslipidemia Back pain Fall Surgical History H/O hernia repair History of cholecystectomy Family History Other Cancer Diabetes Heart disease Social History Smoking Status: Former smoker Second Hand Exposure: No; Do You Dip or Chew Tobacco: No; Hx Alcohol Use: No Hx Substance Use: No Preferred Language: Irish Communication Ability: Effective Casino [employer] Required: No Beliefs That Will Affect Care: None Current Living Situation: Family Current Living Situation Comment: Lives with sonOnesimo Feels Safe at Home: Yes Assistive Devices: Denture - Upper, Denture - Lower and Glasses Physical Exam Vital Signs Vital Signs - 24 hr 11/04/23 18:22 11/04/23 21:05 11/04/23 21:16 Temperature 36.7 C Temperature Source Temporal Artery Scan Pulse Rate 61 57 L Pulse Rate [Apical] 59 L Respiratory Rate 18 23 Respiratory Effort / Characteristics Non-Labored Spontaneous Respiratory Depth Normal Blood Pressure 165/92 H Blood Pressure [Left Arm] 198/110 H Blood Pressure Mean 116 Blood Pressure Mean [Left Arm] 139 Blood Pressure Position Sitting Pulse Oximetry 97 97 Oxygen Delivery Method Room Air Room Air Sepsis Recent Fever Within 48 Hours No Sepsis New/Unexplained Change in Mental Status No Sepsis Action Taken by Nursing No Action Required 11/04/23 21:49 Temperature Temperature Source Pulse Rate Pulse Rate [Apical] 59 L Respiratory Rate 16 Respiratory Effort / Characteristics Respiratory Depth Blood Pressure Blood Pressure [Left Arm] 138/95 Blood Pressure Mean Blood Pressure Mean [Left Arm] 109 Blood Pressure Position Pulse Oximetry 96 Oxygen Delivery Method Room Air Sepsis Recent Fever Within 48 Hours Sepsis New/Unexplained Change in Mental Status Sepsis Action Taken by Nursing VITALS: Vitals are noted on the nurse's note and reviewed by myself. Vital signs stable. GENERAL: 88-year-old male, in no acute distress, nondiaphoretic, well-developed well-nourished. SKIN: The skin was without rashes, erythema. Left hip edema, and bruising. HEAD: Normocephalic atraumatic. NECK: Supple without nuchal rigidity. No lymphadenopathy. No thyromegaly. Cervical spine is nontender. No JVD. HEART: Regular rate and rhythm without murmurs gallops or rubs. LUNGS: Clear to auscultation bilaterally without wheezes, rales or rhonchi. No retractions or accessory muscle use. ABDOMEN: Positive bowel sounds x 4. Soft, nontender, without masses or organomegaly. Vigil sign negative. No guarding or rebound tenderness. MUSCULOSKELETAL: Tenderness to palpation left lateral hip, edema and ecchymosis noted with large firm hematoma present. Positive left straight leg raise. Limited range of motion due to pain, distal pulses intact. NEURO: Patient was alert and oriented to person place and time. No focal neurological deficits. Course Administered Medications Miscellaneous (Remove Lidoderm Patch) 1 each N/A DAILY@2100 ARYAN Stop: 12/04/23 20:59 Last Admin: 11/04/23 21:05 Dose: Not Given Documented By: ACC Discontinued Medications Acetaminophen (Acetaminophen 500 Mg Tab) 1,000 mg PO NOW STA Stop: 11/04/23 19:17 Last Admin: 11/04/23 20:59 Dose: 1,000 mg Documented By: ACC Lidocaine (Lidocaine 5% 1 Patch) 1 patch TD NOW STA Stop: 11/04/23 19:17 Last Admin: 11/04/23 20:59 Dose: 1 patch Documented By: ACC Lisinopril (Lisinopril 5 Mg Tab) 5 mg PO NOW ONE Stop: 11/04/23 21:43 Last Admin: 11/04/23 22:11 Dose: Not Given Documented By: ACC Oxycodone HCl (Oxycodone Hcl Ir 5 Mg Tab (Immediate Release)) 5 mg PO NOW STA Stop: 11/04/23 19:17 Last Admin: 11/04/23 20:59 Dose: 5 mg Documented By: ACC Medical Decision Making Differential Diagnosis Fracture, subluxation, dislocation, contusion, ligamentous injury, neurovascular, compartment syndrome, as well as other pathologies. Medical Records Attestation: I reviewed the patient's medical records. Home Medications Current Medication List: was personally reviewed by me Laboratory Data Attestation: I reviewed the patient's lab results. no leukocytosis, stable hemoglobin and hematocrit, no electrolyte abnormalities 11/04/23 23:53 11/04/23 23:53 Lab Results 11/04/23 Range/Units 23:53 WBC 7.82 (4.8-10.8) K/ul RBC 3.82 L (4.70-6.10) M/uL Hgb 12.1 L (14.0-18.0) g/dl Hct 37.1 L (42.0-52.0) % MCV 97.1 (80.0-100.0) fL MCH 31.7 (25.0-34.0) pg MCHC 32.6 (32.0-36.0) g/dL RDW Std Deviation 44.2 (36.4-46.3) fL RDW Coeff of Dean 12.6 (11.5-14.5) % Plt Count 148 (130-400) K/uL MPV 10.0 (9.4-12.4) fL Immature Gran % (Auto) 0.4 % Neut % (Auto) 55.0 % Lymph % (Auto) 32.6 % [place] % (Auto) 10.2 % Eos % (Auto) 1.5 % Baso % (Auto) 0.3 % Neut # (Auto) 4.30 (1.40-6.50) K/uL Lymph # (Auto) 2.55 (1.20-3.40) K/uL [place] # (Auto) 0.80 H (0.11-0.59) K/uL Eos # (Auto) 0.12 (0.00-0.50) K/uL Baso # (Auto) 0.02 (0.00-0.20) K/uL Immature Gran # (Auto) 0.03 (0.01-0.20) K/uL Sodium 134 L (136-145) mmol/L Potassium 4.3 (3.5-5.1) mmol/L Chloride 100 (98-107) mmol/L Carbon Dioxide 28 (21-32) mmol/L Anion Gap 6 (3-11) BUN 22 (6-23) mg/dl Creatinine 1.24 (0.6-1.4) mg/dl Est Cr Clr Drug Dosing Not Reportable Est GFR ( Amer) 59.8 ml/min Est GFR (Non-Af Amer) 51.6 ml/min BUN/Creatinine Ratio 17.7 (10-20) Glucose 114 H (70-99(Fasting)) mg/dl Calcium 9.0 (8.6-10.3) mg/dl Blood Type A Positive Antibody Screen NEGATIVE Imaging Data Attestation: I personally reviewed and interpreted this imaging study as follows: My Impression: Initial x-ray interpretation per myself shows no acute fracture, soft tissue edema present. Will await formal radiology report. Radiologist's Impression: Femur X-Ray 11/04/23 19:25 LEFT FEMUR 3 VIEWS CLINICAL HISTORY: Fall. Left leg injury. FINDINGS: AP, frog-leg, and crosstable lateral views of the left femur are obtained. No prior studies are available for comparison at the time of dictation. The skeletal structures are osteopenic. There is no radiographic evidence of left femoral fracture. The visualized left hemipelvis appears intact. The hip and knee joints are grossly maintained. There is advanced atherosclerotic calcification of the left femoral artery. Surgical clips and phleboliths are noted in the pelvis. Soft tissue edema overlies the left hip. IMPRESSION: Soft tissue edema overlying the left hip with no radiographic evidence of left femoral fracture. Electronically signed by: Ronny Lama M.D. 11/04/2023 10:[address] 11/04/23 19:25 Exam(s): CT PELVIS Without Contrast EXAM: CT Pelvis Without Intravenous Contrast CLINICAL HISTORY: Reason for exam: fall. TECHNIQUE: Axial computed tomography images of the pelvis without intravenous contrast. CTDI is 23.59 mGy and DLP is 715 mGy-cm. Automated exposure control was utilized for the study. A dose lowering technique was utilized adhering to the principles of ALARA. COMPARISON: CT abdomen/pelvis on 01/03/2021 FINDINGS: Bowel: Unremarkable. No obstruction. No mucosal thickening. Appendix: Normal appendix. Intraperitoneal space: Unremarkable. No free air. No significant fluid collection. Bladder: Unremarkable. No stones. Reproductive: Mild prostatomegaly. Bones/joints: Degenerative changes of the visualized lower lumbar spine. Grade 1/2 anterolisthesis of L4 on L5. No acute fracture. No dislocation. Soft tissues: Hematoma along the left gluteus muscles measures approximately 7.4 x 3.7 x 7.4 cm. Surrounding bruising. Tiny fat- containing umbilical hernia. Small fat-containing right inguinal hernia. Vasculature: Large abdominal aortic aneurysm partially seen, measuring approximately 7.8 cm in diameter. 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 Prominent aneurysmal dilatations of left greater than right internal iliac arteries, measuring approximately 3.6 cm on the left and 2. 4 cm on the right. Phleboliths in the pelvis. Atherosclerotic changes of the vasculature. Lymph nodes: Unremarkable. No enlarged lymph nodes. IMPRESSION: 1. Large abdominal aortic aneurysm partially seen, measuring approximately 7.8 cm in diameter. 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 Prominent aneurysmal dilatations of left greater than right internal iliac arteries, measuring approximately 3.6 cm on the left and 2. 4 cm on the right. 2. Hematoma along the left gluteus muscles measures approximately 7.4 x 3.7 x 7.4 cm. Surrounding bruising. 3. No acute fracture or dislocation identified. Electronically signed by: Keisha Ashford M.D. 11/04/23 20:32 PM Blood Pressure Blood Pressure Findings: Elevated blood pressure Blood Pressure Disposition: elevated BP felt to be situational MDM Narrative The patient is a pleasant 88-year-old male who arrives to the emergency department with his 2 family members for the above-stated complaint. Upon examination the patient has significant tenderness to palpation of the left lateral hip, there does appear to be a large hematoma present. Due to the pain caused with weightbearing, CT imaging of the pelvis was obtained to ensure no occult fracture was present. X-ray imaging of the left humerus was obtained. The patient does have a known large AAA, which was shown on the CT of the pelvis. The patient did not strike his abdomen, the pain is isolated to the left lateral hip, he has no abdominal tenderness to palpation, or complaints of pain. He reports he is not taking any type of anticoagulant. The AAA does measure 7.8 cm, as well as aneurysmal dilatations of the common iliac arteries measuring approximately 2.1 cm on the right and 1.9 cm on the left. Prominent aneurysmal dilatations of left greater than right internal iliac arteries measuring approximately 3.6 cm on the left and 2.4 cm on the right. CT imaging shows the large hematoma along the left gluteus muscles measuring approximately 7.4 x 3.7 x 7.4 cm with surrounding bruising. There does appear to be no acute fracture or dislocation of the pelvis. X-ray of the left humerus per my initial interpretation shows no acute fracture or bony abnormality. The patient was provided with a topical Lidoderm patch, as well as oral acetaminophen and oral oxycodone. After discussion with the patient and family members it was agreed with the best option for the patient is admission to the hospital for observation. Due to the large hematoma, there is concern for possible continuation of extravasation. The patient will also be able to obtain pain control during his stay. A saline lock was placed, CBC, CMP were obtained. CBC, CMP show no leukocytosis, stable hemoglobin and hematocrit, and no electrolyte abnormalities. I did speak with case management regarding admission, [facility]. Patient report was provided to the admitting provider, Dr. Flores. He will accept the patient for admission and took over care of the patient at this time. [facility] patient care. The patient's case was discussed with Dr. Hernadez, who agreed with my evaluation and treatment plan. Impression & Plan AAA (abdominal aortic aneurysm), Hematoma, Hip Injury, Hip pain Discharge Plan Visit Data Chief Complaint: Hip Pain Stated Complaint: FELL, LT HIP PAIN ED Provider: Ronny Hernadez ED Midlevel Provider: Jodie Robin Discharge Problem: AAA (abdominal aortic aneurysm), Hematoma, Hip Injury, Hip pain Patient Disposition: Admitted As Inpatient Discharge Instructions Interventions: ED Discharge Assessment Last Done: 11/05/23 00:45 Discharge Problem: AAA (abdominal aortic aneurysm) Qualifiers: Abdominal aorta location: unspecified Presence of rupture: without rupture Q ualified Code(s): I71.40 - Abdominal aortic aneurysm, without rupture, unspecified Hip Injury Qualifiers: Encounter type: initial encounter Laterality: left Qualified Code(s): S79.912A - Unspecified injury of left hip, initial encounter Hip pain Qualifiers: Laterality: left Qualified Code(s): M25.552 - Pain in left hip
--- NOTE | 2023-11-04 20:33 | CT Scan Report ---
Exam(s): CT PELVIS Without Contrast EXAM: CT Pelvis Without Intravenous Contrast CLINICAL HISTORY: Reason for exam: fall. TECHNIQUE: Axial computed tomography images of the pelvis without intravenous contrast. CTDI is 23.59 mGy and DLP is 715 mGy-cm. Automated exposure control was utilized for the study. A dose lowering technique was utilized adhering to the principles of ALARA. COMPARISON: CT abdomen/pelvis on 01/03/2021 FINDINGS: Bowel: Unremarkable. No obstruction. No mucosal thickening. Appendix: Normal appendix. Intraperitoneal space: Unremarkable. No free air. No significant fluid collection. Bladder: Unremarkable. No stones. Reproductive: Mild prostatomegaly. Bones/joints: Degenerative changes of the visualized lower lumbar spine. Grade 1/2 anterolisthesis of L4 on L5. No acute fracture. No dislocation. Soft tissues: Hematoma along the left gluteus muscles measures approximately 7.4 x 3.7 x 7.4 cm. Surrounding bruising. Tiny fat- containing umbilical hernia. Small fat-containing right inguinal hernia. Vasculature: Large abdominal aortic aneurysm partially seen, measuring approximately 7.8 cm in diameter. 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 Prominent aneurysmal dilatations of left greater than right internal iliac arteries, measuring approximately 3.6 cm on the left and 2. 4 cm on the right. Phleboliths in the pelvis. Atherosclerotic changes of the vasculature. Lymph nodes: Unremarkable. No enlarged lymph nodes. IMPRESSION: 1. Large abdominal aortic aneurysm partially seen, measuring approximately 7.8 cm in diameter. 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 Prominent aneurysmal dilatations of left greater than right internal iliac arteries, measuring approximately 3.6 cm on the left and 2. 4 cm on the right. 2. Hematoma along the left gluteus muscles measures approximately 7.4 x 3.7 x 7.4 cm. Surrounding bruising. 3. No acute fracture or dislocation identified. Electronically signed by: Keisha Ashford M.D. 11/04/23 20:32 PM
--- NOTE | 2023-11-04 20:58 | Emergency Department Note ---
ED Visit Note I was consulted by the Advanced Practice Provider. The case was discussed at length. I personally made/approved the management plan and take responsibility for the patient management. I performed a substantive portion of the visit. This includes the aspects of: [-I independently interpreted the following studies:][Left femur x-ray does not show fracture or bony dislocation] Patient presents with left hip pain after falling. Plain film imaging did not show any fracture. A CT was performed as the patient was having quite a bit of discomfort. A large hematoma was seen. No pelvic or femur fracture. Incidentally, the patient was found to have an aortic aneurysm, he knows about the aneurysm although, the aneurysm is bigger today than it had been on previous imaging. Given his age, the large hematoma, his amount of pain, I do think a hospital stay would be warranted. The on-call hospitalist was consulted. .
[2023-11-04] MEDS: LIDOCAINE 5% 1 PATCH TD STA (20:59)
[2023-11-04] MEDS: oxyCODONE HCL IR 5 MG TAB (IMMEDIATE RELEASE) PO STA (20:59)
[2023-11-04] MEDS: ACETAMINOPHEN 500 MG TAB PO STA (20:59)
--- NOTE | 2023-11-04 21:41 | History & Physical Report ---
Date of Service November 04, 2023 Assessment & Plan (1) Hematoma: (2) AAA (abdominal aortic aneurysm): (3) HTN (hypertension): (4) CKD (chronic kidney disease), stage III: (5) GERD (gastroesophageal reflux disease): (6) Depression: (7) Dyslipidemia: Plan This is an 88yo M with a PMH of HTN, history of AAA, dyslipidemia, depression and other medical problems listed below who presents with pain of LLE after fall today and found to have a 7x3x7 cm left gluteal muscle hematoma and associated ambulatory dysfunction and pain. Please see Dr. Velasquez's addendum for assessment and plan. PCP: Tameka CODE: DNR/DNI I spent a total of 60 minutes coordinating, documenting, and providing care for this patient excluding time spent in the performance of separately billed services. History of Present Illness Chief Complaint: leg pain Primary Care Provider: Jermaine English MD This is an 88yo M with a PMH of HTN, history of AAA, dyslipidemia, depression and other medical problems listed below who presents with pain of LLE after fall today. Was working on a tractor this afternoon and stepped off onto another [employer] ce of equipment and fell to the ground, landing on his left hip. Denies any head trauma or LOC. Having difficulty ambulating and bearing weight on LLE following fall so was brought the ED by family. Pain improved after oxycodone and tylenol in ED. Denies any F/C, lightheadedness, CP, SOB, N/V, abd pain, dysuria, diarrhea or constipation. Took all of his medications this morning. Of note, does have history of a large AAA last seen by vascular surgery at [facility] [place] in [place] with AAA measuring 6.7cm on CT at that time. Per chart review, he was told then he is not a candidate for open surgical repair and unsure about possibility of endovascular repair. Patient made the decision to stop following with vascular and has not scheduled CT imaging since then. Allergies Allergy/AdvReac Type Severity Reaction Status Date / Time felodipine AdvReac Unknown DROWSINESS Unverified 11/04/23 21:38 Home Medications Medication Instructions Recorded Confirmed Type atenolol 50 mg tablet 50 mg PO QAM 01/03/21 11/04/23 History lisinopril 5 mg tablet 5 mg PO QAM 01/03/21 11/04/23 History ascorbic acid (vitamin C) 500 mg 500 mg PO DAILY 11/04/23 11/04/23 History tablet (Vitamin C) escitalopram oxalate 20 mg tablet 20 mg PO QAM 11/04/23 11/04/23 History magnesium 200 mg tablet 400 mg PO DAILY 11/04/23 11/04/23 History mirabegron 25 mg tablet,extended 25 mg PO DAILY 11/04/23 11/04/23 History release 24 hr (Myrbetriq) multivitamin 1 tab PO QAM 11/04/23 11/04/23 History vit C 250 mg-vit E 90 mg-zinc 40 1 tab PO AMHS 11/04/23 11/04/23 History mg-copper 1 [id number] capsule (PreserVision AREDS-2) Past Med/Surg History Medical History Depression HTN (hypertension) CKD (chronic kidney disease), stage III AAA (abdominal aortic aneurysm) Abnormal CT scan Compression fx, lumbar spine GERD (gastroesophageal reflux disease) Dyslipidemia Back pain Fall Surgical History H/O hernia repair History of cholecystectomy Family History Other Cancer Diabetes Heart disease Social History Smoking Status: Former smoker Tobacco Type: Cigarettes Second Hand Exposure: No; Do You Dip or Chew Tobacco: No; Hx Alcohol Use: No Hx Substance Use: No Preferred Language: Estonian Communication Ability: Effective 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 Physical Exam Physical Exam: General Appearance: WD/WN, vitals as above, NAD, sitting up in bed, pleasant, conversing easily Head: normocephalic, atraumatic Eyes: normal inspection, PERRL, conjunctivae normal, anicteric sclerae ENT: external ear and nose normal, oropharynx normal Neck: normal visual inspection, trachea midline, no thyromegaly Respiratory: normal respiratory effort, lungs clear to auscultation, no wheeze, rales, rhonchi. No accessory muscle use Cardiovascular: regular rate, rhythm, normal peripheral pulses, no BLE edema. Vessels: no JVD Chest: normal inspection of chest Abdomen/GI: normal bowel sounds, soft, nontender, no hepatosplenomegaly Extremities/Musculoskeletal: + Left lateral gluteal muscle hematoma with TTP extending down left lateral thigh, limited ROM 2/2 pain Neurologic: PERRL, EOMI, accommodation nl, no face palsy, no dysarthria, CN's II-XI intact bilaterally and moves all extremities Psychiatric: A+Ox3, euthymic affect Skin: no rashes, normal color, warm/dry Results & Data Results & Data Vital Signs (Past 12 Hours) Vital Signs Temp Pulse Pulse Resp BP BP Pulse Ox 11/04/23 21:05 59 L 23 198/110 H 97 11/04/23 18:22 36.7 C 61 18 165/92 H 97 O2 Del Method 11/04/23 21:05 Room Air 11/04/23 18:22 Room Air Laboratory Results Laboratory Results WBC 6.45 K/ul (4.8-10.8) 11/05/23 05:41 RBC 3.40 M/uL (4.70-6.10) L 11/05/23 05:41 Hgb 10.9 g/dl (14.0-18.0) L 11/05/23 05:41 Hct 32.5 % (42.0-52.0) L 11/05/23 05:41 MCV 95.6 fL (80.0-100.0) 11/05/23 05:41 MCH 32.1 pg (25.0-34.0) 11/05/23 05:41 MCHC 33.5 g/dL (32.0-36.0) 11/05/23 05:41 RDW Std Deviation 43.5 fL (36.4-46.3) 11/05/23 05:41 RDW Coeff of Dean 12.6 % (11.5-14.5) 11/05/23 05:41 Plt Count 144 K/uL (130-400) 11/05/23 05:41 MPV 10.3 fL (9.4-12.4) 11/05/23 05:41 Immature Gran % (Auto) 0.5 % 11/05/23 05:41 Neut % (Auto) 46.0 % 11/05/23 05:41 Lymph % (Auto) 39.4 % 11/05/23 05:41 [place] % (Auto) 11.8 % 11/05/23 05:41 Eos % (Auto) 2.0 % 11/05/23 05:41 Baso % (Auto) 0.3 % 11/05/23 05:41 Neut # (Auto) 2.97 K/uL (1.40-6.50) 11/05/23 05:41 Lymph # (Auto) 2.54 K/uL (1.20-3.40) 11/05/23 05:41 [place] # (Auto) 0.76 K/uL (0.11-0.59) H 11/05/23 05:41 Eos # (Auto) 0.13 K/uL (0.00-0.50) 11/05/23 05:41 Baso # (Auto) 0.02 K/uL (0.00-0.20) 11/05/23 05:41 Immature Gran # (Auto) 0.03 K/uL (0.01-0.20) 11/05/23 05:41 Sodium 134 mmol/L (136-145) L 11/04/23 23:53 Potassium 4.3 mmol/L (3.5-5.1) 11/04/23 23:53 Chloride 100 mmol/L (98-107) 11/04/23 23:53 Carbon Dioxide 28 mmol/L (21-32) 11/04/23 23:53 Anion Gap 6 (3-11) 11/04/23 23:53 BUN 22 mg/dl (6-23) 11/04/23 23:53 Creatinine 1.24 mg/dl (0.6-1.4) 11/04/23 23:53 Est Cr Clr Drug Dosing Not Reportable 11/04/23 23:53 Est GFR ( Amer) 59.8 ml/min 11/04/23 23:53 Est GFR (Non-Af Amer) 51.6 ml/min 11/04/23 23:53 BUN/Creatinine Ratio 17.7 (10-20) 11/04/23 23:53 Glucose 114 mg/dl (70-99(Fasting)) H 11/04/23 23:53 Calcium 9.0 mg/dl (8.6-10.3) 11/04/23 23:53 Blood Type A Positive 11/04/23 23:53 Antibody Screen NEGATIVE 11/04/23 23:53 Impressions Diagnostic Findings Pelvis CT 11/04/23 19:25 Exam(s): CT PELVIS Without Contrast EXAM: CT Pelvis Without Intravenous Contrast CLINICAL HISTORY: Reason for exam: fall. TECHNIQUE: Axial computed tomography images of the pelvis without intravenous contrast. CTDI is 23.59 mGy and DLP is 715 mGy-cm. Automated exposure control was utilized for the study. A dose lowering technique was utilized adhering to the principles of ALARA. COMPARISON: CT abdomen/pelvis on 01/03/2021 FINDINGS: Bowel: Unremarkable. No obstruction. No mucosal thickening. Appendix: Normal appendix. Intraperitoneal space: Unremarkable. No free air. No significant fluid collection. Bladder: Unremarkable. No stones. Reproductive: Mild prostatomegaly. Bones/joints: Degenerative changes of the visualized lower lumbar spine. Grade 1/2 anterolisthesis of L4 on L5. No acute fracture. No dislocation. Soft tissues: Hematoma along the left gluteus muscles measures approximately 7.4 x 3.7 x 7.4 cm. Surrounding bruising. Tiny fat- containing umbilical hernia. Small fat-containing right inguinal hernia. Vasculature: Large abdominal aortic aneurysm partially seen, measuring approximately 7.8 cm in diameter. 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 Prominent aneurysmal dilatations of left greater than right internal iliac arteries, measuring approximately 3.6 cm on the left and 2. 4 cm on the right. Phleboliths in the pelvis. Atherosclerotic changes of the vasculature. Lymph nodes: Unremarkable. No enlarged lymph nodes. IMPRESSION: 1. Large abdominal aortic aneurysm partially seen, measuring approximately 7.8 cm in diameter. 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 Prominent aneurysmal dilatations of left greater than right internal iliac arteries, measuring approximately 3.6 cm on the left and 2. 4 cm on the right. 2. Hematoma along the left gluteus muscles measures approximately 7.4 x 3.7 x 7.4 cm. Surrounding bruising. 3. No acute fracture or dislocation identified. Electronically signed by: Keisha Ashford M.D. 11/04/23 20:32 PM Supervising Physician Co-Signing Physician Notes IM ATTENDING : Patient seen and examined. History obtained from patient and records. Concur with salient points upon review of preceding documentation by Ms. Martina Lopez PA-C. I take responsibility for plan of care below. FINAL ASSESSMENT AND PLAN as follows : Traumatic gluteal hematoma Acute on chronic anemia secondary to above (hemoglobin down to 12 from baseline of 13) Hypertension, currently stable after receiving pain medication at the ER Enlarging AAA, patient not interested in intervention Mood disorder, stable Past tobacco abuse OBS GMF Follow H&H, transfuse PRBC if hemoglobin less than 8 and or for symptomatic anemia (hx PVD) PT OT eval DVT flexes. SCDs Re: Gluteal hematoma DNR Text document was generated using [employer] voice recognition software. It may contain grammatical or spelling errors. Kindly contact undersigned for clarification of any documentation item in question. (2) AAA (abdominal aortic aneurysm) Presence of rupture: without rupture Qualified Code(s): I71.4 - Abdominal aortic aneurysm, without rupture
[2023-11-04] MEDS: lisinopril 5 MG TAB PO ONE (22:11)
--- NOTE | 2023-11-04 22:33 | XRay Report ---
LEFT FEMUR 3 VIEWS CLINICAL HISTORY: Fall. Left leg injury. FINDINGS: AP, frog-leg, and crosstable lateral views of the left femur are obtained. No prior studies are available for comparison at the time of dictation. The skeletal structures are osteopenic. There is no radiographic evidence of left femoral fracture. The visualized left hemipelvis appears intact. The hip and knee joints are grossly maintained. There is advanced atherosclerotic calcification of t he left femoral artery. Surgical clips and phleboliths are noted in the pelvis. Soft tissue edema ove rlies the left hip. IMPRESSION: Soft tissue edema overlying the left hip with no radiographic evidence of left femoral fr acture. Electronically signed by: Ronny Lama M.D. 11/04/2023 10:31 PM
[2023-11-04] MEDS ORDERED: PROMETHAZINE HCL 6.25 MG in SODIUM CHLORIDE 0.9% 50 ML IV PRN (23:46)
[2023-11-05 00:18] LABS: Basophils # (auto) 0.02 K/uL (0.00-0.20); Basophils % (auto) 0.3 %; Eosinophils # (auto) 0.12 K/uL (0.00-0.50); Eosinophils % (auto) 1.5 %; Hematocrit (blood only) 37.1 % (42.0-52.0); Hemoglobin 12.1 g/dl (14.0-18.0); Immature Granulocytes # (auto) 0.03 K/uL (0.01-0.20); Immature Granulocytes % (auto) 0.4 %; Lymphocytes # (auto) 2.55 K/uL (1.20-3.40); Lymphocytes % (auto) 32.6 %; Mean Corpuscular Hemoglobin 31.7 pg (25.0-34.0); Mean Corpuscular Hgb Conc 32.6 g/dL (32.0-36.0); Mean Corpuscular Volume 97.1 fL (80.0-100.0); Monocytes % (auto) 10.2 %; Platelet Count 148 K/uL (130-400); RDW Coefficient of Variation 12.6 % (11.5-14.5); RDW Standard Deviation 44.2 fL (36.4-46.3); Red Blood Count 3.82 M/uL (4.70-6.10); White Blood Count 7.82 K/ul (4.8-10.8)
[2023-11-05 00:26] LABS: Anion Gap 6 (3-11); BUN Creatinine Ratio 17.7 (10-20); Blood Urea Nitrogen 22 mg/dl (6-23); Carbon Dioxide 28 mmol/L (21-32); Chloride 100 mmol/L (98-107); Est GFR (African American) 59.8 ml/min; Est GFR (Non-African American) 51.6 ml/min; Glucose 114 mg/dl (70-99(Fasting)); Potassium 4.3 mmol/L (3.5-5.1); Sodium 134 mmol/L (136-145)
[2023-11-05] MEDS: SODIUM CHLORIDE 0.9% 1,000 ML IV ONE (02:07)
[2023-11-05] MEDS: MELATONIN 3 MG TAB PO PRN (02:07)
[2023-11-05] MEDS: lisinopril 5 MG TAB PO ONE (02:07)
[2023-11-05] MEDS: ACETAMINOPHEN 325 MG TAB PO PRN (06:03)
[2023-11-05 06:15] LABS: Basophils # (auto) 0.02 K/uL (0.00-0.20); Basophils % (auto) 0.3 %; Eosinophils # (auto) 0.13 K/uL (0.00-0.50); Hematocrit (blood only) 32.5 % (42.0-52.0); Hemoglobin 10.9 g/dl (14.0-18.0); Immature Granulocytes # (auto) 0.03 K/uL (0.01-0.20); Immature Granulocytes % (auto) 0.5 %; Lymphocytes # (auto) 2.54 K/uL (1.20-3.40); Lymphocytes % (auto) 39.4 %; Mean Corpuscular Hemoglobin 32.1 pg (25.0-34.0); Mean Corpuscular Hgb Conc 33.5 g/dL (32.0-36.0); Mean Corpuscular Volume 95.6 fL (80.0-100.0); Mean Platelet Volume 10.3 fL (9.4-12.4); Monocytes # (auto) 0.76 K/uL (0.11-0.59); Monocytes % (auto) 11.8 %; Neutrophils # (auto) 2.97 K/uL (1.40-6.50); Platelet Count 144 K/uL (130-400); RDW Coefficient of Variation 12.6 % (11.5-14.5); RDW Standard Deviation 43.5 fL (36.4-46.3); White Blood Count 6.45 K/ul (4.8-10.8)
[2023-11-05] MEDS: ATENOLOL 25 MG TABLET PO SCH (08:20)
[2023-11-05] MEDS: VIBEGRON 75 MG TAB PO SCH (08:21)
[2023-11-05] MEDS: ESCITALOPRAM OXALATE 20 MG TAB PO SCH (08:21)
[2023-11-05] MEDS: MULTIVITAMIN TAB PO SCH (08:21)
[2023-11-05] MEDS ORDERED: lisinopril 5 MG TAB PO SCH (09:00)
[2023-11-05] MEDS ORDERED: ATENOLOL 50 MG TABLET PO SCH (09:00)
[2023-11-05] MEDS: POLYETHYLENE (MIRALAX) 17 GM PACK PO PRN (13:47)
[2023-11-05] MEDS: oxyCODONE HCL IR 5 MG TAB (IMMEDIATE RELEASE) PO PRN (14:47)
--- NOTE | 2023-11-05 15:08 | Hospitalist Progress Note ---
Date of Service November 05, 2023 Assessment & Plan (1) Hematoma: Plan 88-year-old male with PMH of HTN, AAA, HLD, depression presented to the ED 11/03 with complaint of mechanical fall and left buttock pain. He denied any head trauma or LOC. He is being managed for the following: Traumatic gluteal hematoma Acute on chronic anemia secondary to above Patient coming in with fall and left hip pain. 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 Hematoma along the left gluteus muscle measuring 7.4 x 3.7 x 7.4 cm. No acute fracture or dislocation Monitor H&H, avoid NSAIDs and anticoagulation. Transfuse hemoglobin if hemoglobin less than 8 or for symptomatic anemia. PT/OT. HnH in the afternoon. History of AAA: Used to follow vascular surgery at [place], does not follow any more. Patient had made decision to not pursue any treatment for the same. Confirmed with the patient today. Other chronic medical conditions: Continue with/resume home meds as and when able Hypertension, currently stable after receiving pain medication at the ER Enlarging AAA, patient not interested in intervention Mood disorder, stable Past tobacco abuse DVT Px. SCDs Re: Gluteal hematoma DNR/DNI Dispo: PT/OT, CM to assist with DC planning. Text document was generated using [employer] voice recognition software. It may contain grammatical or spelling errors. Kindly contact undersigned for clarification of any documentation item in question. Admission and Anticipated Discharge Date Admission Date: November 04, 2023 Subjective Patient was seen and examined at bedside. Patient was lying in bed, on room air, NAD, resting comfortably. Patient reports soreness at the left hip/buttock, denies any febrile illness or headache or dizziness or chest pain or palpitation. Patient reports eating okay and moving bowels okay, denies any pain or burning with passing urine. Physical Exam Physical Exam: General Appearance: WD/WN, vitals as above, NAD, sitting up in bed, pleasant, conversing easily Head: normocephalic, atraumatic Eyes: normal inspection, PERRL, conjunctivae normal, anicteric sclerae ENT: external ear and nose normal, oropharynx normal Neck: normal visual inspection, trachea midline, no thyromegaly Respiratory: normal respiratory effort, lungs clear to auscultation, no wheeze, rales, rhonchi. No accessory muscle use Cardiovascular: regular rate, rhythm, normal peripheral pulses, no BLE edema. Vessels: no JVD Chest: normal inspection of chest Abdomen/GI: normal bowel sounds, soft, nontender, no hepatosplenomegaly Extremities/Musculoskeletal: + Left lateral gluteal muscle hematoma with TTP extending down left lateral thigh, limited ROM 2/2 pain Neurologic: PERRL, EOMI, accommodation nl, no face palsy, no dysarthria, CN's II-XI intact bilaterally and moves all extremities Psychiatric: A+Ox3, euthymic affect Skin: no rashes, normal color, warm/dry Results & Data Results & Data Vital Signs (Past 12 Hours) Vital Signs Temp Pulse Pulse Resp BP BP Pulse Ox 11/05/23 07:54 36.5 C 50 L 16 143/83 H 96 11/05/23 07:35 11/05/23 07:00 36.6 C 52 L 16 142/85 H 96 11/05/23 06:06 52 L 145/88 H O2 Del Method 11/05/23 07:54 Room Air 11/05/23 07:35 Room Air 11/05/23 07:00 Room Air 11/05/23 06:06
[2023-11-05 15:28] LABS: Hematocrit (blood only) 36.2 % (42.0-52.0); Hemoglobin 11.6 g/dl (14.0-18.0)
[2023-11-06 06:56] LABS: Hematocrit (blood only) 32.1 % (42.0-52.0); Hemoglobin 10.5 g/dl (14.0-18.0); Mean Corpuscular Hemoglobin 31.7 pg (25.0-34.0); Mean Corpuscular Hgb Conc 32.7 g/dL (32.0-36.0); Mean Platelet Volume 10.5 fL (9.4-12.4); Platelet Count 141 K/uL (130-400); RDW Coefficient of Variation 12.6 % (11.5-14.5); RDW Standard Deviation 44.8 fL (36.4-46.3); Red Blood Count 3.31 M/uL (4.70-6.10); White Blood Count 7.22 K/ul (4.8-10.8)
[2023-11-06 07:14] LABS: BUN Creatinine Ratio 14.8 (10-20); Calcium 8.7 mg/dl (8.6-10.3); Creatinine Clr Calc Pharmacy 37.1 ml/min; Est GFR (African American) 50.7 ml/min; Est GFR (Non-African American) 43.8 ml/min; Phosphorus 4.1 mg/dl (2.5-4.9); Potassium 4.6 mmol/L (3.5-5.1)
[2023-11-06] MEDS: lisinopril 5 MG TAB PO SCH (08:33)
[2023-11-06] MEDS: SODIUM CHLORIDE 0.9% 1,000 ML IV SCH (10:16)
--- NOTE | 2023-11-06 14:54 | Hospitalist Progress Note ---
Date of Service November 06, 2023 Assessment & Plan (1) Hematoma: Plan 88-year-old male with PMH of HTN, AAA, HLD, depression presented to the ED 11/03 with complaint of mechanical fall and left buttock pain. He denied any head trauma or LOC. He is being managed for the following: Traumatic gluteal hematoma Acute on chronic anemia secondary to above Patient coming in with fall and left hip pain. 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 Hematoma along the left gluteus muscle measuring 7.4 x 3.7 x 7.4 cm. No acute fracture or dislocation Monitor H&H, avoid NSAIDs and anticoagulation. Transfuse hemoglobin if hemoglobin less than 8 or for symptomatic anemia. PT/OT. HnH slowly downtrending, repeat labs in AM US scan to assess size of hematoma to confirm its not expanding, likely cb. Mild Dehydration: not yet MALORIE, Cr bumped. Gentle ivf, hold lisinopril, labs in Am. History of AAA: [place] [facility] [place] does [place] any more. Patient had made decision to not pursue any treatment for the same. Confirmed with the patient 11/04. Other chronic medical conditions: Continue with/resume home meds as and when able Hypertension, currently stable after receiving pain medication at the ER Enlarging AAA, patient not interested in intervention Mood disorder, stable Past tobacco abuse DVT Px. SCDs Re: Gluteal hematoma DNR/DNI Dispo: PT/OT, CM to assist with DC planning. Text document was generated using [employer] voice recognition software. It may contain grammatical or spelling errors. Kindly contact undersigned for clarification of any documentation item in question. Admission and Anticipated Discharge Date Admission Date: November 04, 2023 Subjective Patient was seen and examined at bedside. Patient was lying in bed, on room air, NAD, resting comfortably. Patient reports soreness at the left hip/buttock improving, denies any febrile illness or headache or dizziness or chest pain or palpitation. Patient reports eating okay and moving bowels okay, denies any pain or burning with passing urine. Physical Exam Physical Exam: General Appearance: WD/WN, vitals as above, NAD, sitting up in bed, pleasant, conversing easily Head: normocephalic, atraumatic Eyes: normal inspection, PERRL, conjunctivae normal, anicteric sclerae ENT: external ear and nose normal, oropharynx normal Neck: normal visual inspection, trachea midline, no thyromegaly Respiratory: normal respiratory effort, lungs clear to auscultation, no wheeze, rales, rhonchi. No accessory muscle use Cardiovascular: regular rate, rhythm, normal peripheral pulses, no BLE edema. Vessels: no JVD Chest: normal inspection of chest Abdomen/GI: normal bowel sounds, soft, nontender, no hepatosplenomegaly Extremities/Musculoskeletal: + Left lateral gluteal muscle hematoma with TTP extending down left lateral thigh, limited ROM 2/2 pain - improving Neurologic: PERRL, EOMI, accommodation nl, no face palsy, no dysarthria, CN's II-XI intact bilaterally and moves all extremities Psychiatric: A+Ox3, euthymic affect Skin: no rashes, normal color, warm/dry Results & Data Results & Data Vital Signs (Past 12 Hours) Vital Signs Temp Pulse Pulse Resp BP BP Pulse Ox 11/06/23 14:02 36.9 C 67 16 134/76 96 11/06/23 08:37 61 105/66 96 11/06/23 07:25 36.8 C 65 17 97/66 L 96 11/06/23 06:09 60 117/70 O2 Del Method 11/06/23 14:02 Room Air 11/06/23 08:37 Room Air 11/06/23 07:25 Room Air 11/06/23 06:09
[2023-11-07 06:46] LABS: Hematocrit (blood only) 30.3 % (42.0-52.0); Hemoglobin 9.8 g/dl (14.0-18.0); Mean Corpuscular Hemoglobin 31.2 pg (25.0-34.0); Mean Corpuscular Hgb Conc 32.3 g/dL (32.0-36.0); Mean Corpuscular Volume 96.5 fL (80.0-100.0); Mean Platelet Volume 10.3 fL (9.4-12.4); Platelet Count 141 K/uL (130-400); RDW Coefficient of Variation 12.5 % (11.5-14.5); RDW Standard Deviation 43.8 fL (36.4-46.3); Red Blood Count 3.14 M/uL (4.70-6.10); White Blood Count 7.27 K/ul (4.8-10.8)
--- NOTE | 2023-11-07 06:56 | Ultrasound Report ---
US softtissue plvcwall/buttock CLINICAL HISTORY: assess size of left gluteal hematoma COMPARISON STUDY: Pelvis CT November 04, 2023. TECHNIQUE: Sonography of the left buttock/hip was performed. FINDINGS: There is an 8 x 2.9 x 6.9 cm complex fluid collection within the deep subcutaneous tissues of the inferior lateral left buttock. This represents a hematoma and is similar in size to CT of 2023. No additional fluid collections are present. IMPRESSION: No change in an 8 x 2.9 x 6.9 cm left buttock hematoma since CT of November 04, 2023. ACT 112: Negative or not required by law. Electronically signed by: Inocente Kumar M.D. 11/07/2023 6:54 AM
[2023-11-07 07:02] LABS: BUN Creatinine Ratio 18.3 (10-20); Calcium 8.6 mg/dl (8.6-10.3); Creatinine Clr Calc Pharmacy 45.8 ml/min; Est GFR (African American) 65.5 ml/min; Est GFR (Non-African American) 56.5 ml/min; Magnesium 1.8 mg/dl (1.7-2.4); Potassium 4.4 mmol/L (3.5-5.1)
--- NOTE | 2023-11-07 13:02 | Discharge Summary ---
Date of Service November 07, 2023 Admission HPI Per Admitting Provider This is an 88yo M with a PMH of HTN, history of AAA, dyslipidemia, depression and other medical problems listed below who presents with pain of LLE after fall today. Was working on a tractor this afternoon and stepped off onto another piece of equipment and fell to the ground, landing on his left hip. Denies any head trauma or LOC. Having difficulty ambulating and bearing weight on LLE following fall so was brought the ED by family. Pain improved after oxycodone and tylenol in ED. Denies any F/C, lightheadedness, CP, SOB, N/V, abd pain, dysuria, diarrhea or constipation. Took all of his medications this morning. Of note, does have history of a large AAA last seen by vascular surgery at [facility] [place] in 2020 with AAA measuring 6.7cm on CT at that time. Per chart review, he was told then he is not a candidate for open surgical repair and unsure about possibility of endovascular repair. Patient made the decision to stop following with vascular and has not scheduled CT imaging since then. Admission Exam Per Admitting Provider General Appearance: WD/WN, vitals as above, NAD, sitting up in bed, pleasant, conversing easily Head: normocephalic, atraumatic Eyes: normal inspection, PERRL, conjunctivae normal, anicteric sclerae ENT: external ear and nose normal, oropharynx normal Neck: normal visual inspection, trachea midline, no thyromegaly Respiratory: normal respiratory effort, lungs clear to auscultation, no wheeze, rales, rhonchi. No accessory muscle use Cardiovascular: regular rate, rhythm, normal peripheral pulses, no BLE edema. Vessels: no JVD Chest: normal inspection of chest Abdomen/GI: normal bowel sounds, soft, nontender, no hepatosplenomegaly Extremities/Musculoskeletal: + Left lateral gluteal muscle hematoma with TTP extending down left lateral thigh, limited ROM 2/2 pain Neurologic: PERRL, EOMI, accommodation nl, no face palsy, no dysarthria, CN's II-XI intact bilaterally and moves all extremities Psychiatric: A+Ox3, euthymic affect Skin: no rashes, normal color, warm/dry Principal Diagnosis Traumatic gluteal hematoma Acute on chronic anemia secondary to above Mild dehydration Discharge Exam General Appearance: WD/WN, vitals as above, NAD, sitting up in bed, pleasant, conversing easily Head: normocephalic, atraumatic Eyes: normal inspection, PERRL, conjunctivae normal, anicteric sclerae ENT: external ear and nose normal, oropharynx normal Neck: normal visual inspection, trachea midline, no thyromegaly Respiratory: normal respiratory effort, lungs clear to auscultation, no wheeze, rales, rhonchi. No accessory muscle use Cardiovascular: regular rate, rhythm, normal peripheral pulses, no BLE edema. Vessels: no JVD Chest: normal inspection of chest Abdomen/GI: normal bowel sounds, soft, nontender, no hepatosplenomegaly Extremities/Musculoskeletal: + Left lateral gluteal muscle hematoma with TTP extending down left lateral thigh, limited ROM 2/2 pain - improving Neurologic: PERRL, EOMI, accommodation nl, no face palsy, no dysarthria, CN's II-XI intact bilaterally and moves all extremities Psychiatric: A+Ox3, euthymic affect Skin: no rashes, normal color, warm/dry Discharge Data Allergies Allergy/AdvReac Type Severity Reaction Status Date / Time felodipine AdvReac Unknown DROWSINESS Unverified 11/04/23 21:38 Consultations 11/04/23 21:25 ED Decision to Admit Stat Ordered Studies 11/04/23 19:25 CT pelvis wo con Stat 11/07/23 07:00 US softtissue plvcwall/buttock Routine Hospital Course (1) Hematoma: Plan 88-year-old male with PMH of HTN, AAA, HLD, depression presented to the ED 11/03 with complaint of mechanical fall and left buttock pain. He denied any head trauma or LOC. He was managed for the following: Traumatic gluteal hematoma Acute on chronic anemia secondary to above Patient coming in with fall and left hip pain. 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 Hematoma along the left gluteus muscle measuring 7.4 x 3.7 x 7.4 cm. No acute fracture or dislocation Avoid NSAIDs and anticoagulation, H&H stable around 10. US scan to assess size of hematoma to confirm its not expanding -hematoma has history stable. Patient to follow-up with PCP for CBC and ultrasound soft tissue left hip in about a week time upon discharge. Patient and his son has been made aware. His son was contacted via pt's cell phone at bedside exam. Mild Dehydration: not yet MALORIE, Cr bumped. Gentle ivf, hold lisinopril, labs in Am. Resolved. Discontinue IV fluid. Resume home medication. History of AAA: Used to follow vascular surgery at [facility] [place], does not follow any more. Patient had made decision to not pursue any treatment for the same. Confirmed with the patient 11/04. Other chronic medical conditions: Continue with/resume home meds as and when able Hypertension, currently stable after receiving pain medication at the ER Enlarging AAA, patient not interested in intervention Mood disorder, stable Past tobacco abuse DVT Px. SCDs Re: Gluteal hematoma DNR/DNI Following instructions were communicated with patient's son over the phone at bedside exam. Patient is being discharged home with following instruction at the point of discharge: Follow-up with your primary care physician within a week time and likely you will need labs CBC/CMP/magnesium/phosphorus. You will need repeat hemoglobin in 1 week time and repeat ultrasound scan of the soft tissue of left hip/thigh to ensure stability of hematoma in about a week time. Coordinate with your PCP office to set up the test. You can use [id number] Tylenol for mild to moderate pain and esly-gpo-[id number] 4% lidocaine patch for moderate to severe pain. Avoid NSAIDs. Do not apply lidocaine patch over the hematoma, rather apply over the normal skin surrounding the lesion. Maintain cleanliness, check hematoma site regularly for any signs of infection as discussed at the bedside. If you have fever/increasing redness/increasing size of hematoma/fluctuation at the site of hematoma, report to the emergency immediately. Take your medications as prescribed. Please make sure that you are able to get your medications today by calling your pharmacy before you leave the hospital so that your treatment continuity is not broken. Text document was generated using [employer] voice recognition software. It may contain grammatical or spelling errors. Kindly contact undersigned for clarification of any documentation item in question. Home Health Attestation I certify that this patient is under my care and that I, or a physicians commercial lines account assistant working with me, had a face to-face encounter that meets the [facility] [id number]-vm-[id number] encounter requirements with this patient. The encounter with the patient was in whole, or in part, for the following medical condition, which is the primary reason for home health care (list medical condition): I certify that, based on my findings, the following services are medically necessary home health services: My clinical findings support the need for the above services because: Further, I certify that my clinical findings support that this patient is homebound (i.e. absences from home require considerable and taxing effort and are for medical reasons or [facility] or infrequently or of short duration when for other reasons) because: Certification for Home Health Services: Based on the above findings, I certify that this patient is confined to the home and needs intermittent shelter care, physical therapy and/or speech therapy or continues to need occupational therapy. The patient is under my care, and I have initiated the establishment of the plan of care. This patient will be followed by a physician who will periodically review the plan of care. Total Time Total Time Spent Total Time Spent (In Minutes): 45 Discharge Plan Discharge Items Patient Disposition: Home - Self-Care Reason For Visit: GLUTE HEMATOMA, FALL Discharge Diagnosis: Traumatic gluteal hematoma Acute on chronic anemia secondary to above Mild dehydration Activity: Resume your previous activity Non-emergency contact: Primary Care Provider Call non-emergency contact if: you have any medication questions, your symptoms worsen and your temperature is above 101.5 Follow-up/Referrals: Jermaine English MD [Primary Care Provider] - Diet: Heart Healthy Addtl Attending Provider Instructions: Follow-up with your primary care physician within a week time and likely you will need labs CBC/CMP/magnesium/phosphorus. You will need repeat hemoglobin in 1 week time and repeat ultrasound scan of the soft tissue of left hip/thigh to ensure stability of hematoma in about a week time. Coordinate with your PCP office to set up the test. You can use utcj-isx-jxltkii Tylenol for mild to moderate pain and jgtc-mxb-[id number] 4% lidocaine patch for moderate to severe pain. Avoid NSAIDs. Do not apply lidocaine patch over the hematoma, rather apply over the normal skin surrounding the lesion. Maintain cleanliness, check hematoma site regularly for any signs of infection as discussed at the bedside. If you have fever/increasing redness/increasing size of hematoma/fluctuation at the site of hematoma, report to the emergency immediately. Take your medications as prescribed. Please make sure that you are able to get your medications today by calling your pharmacy before you leave the hospital so that your treatment continuity is not broken. Pending Studies at Discharge: No Stand-Alone Forms: My [facility], Smoking Cessation Medications and DC Order Prescriptions: New oxycodone 5 mg Tablet 5 mg PO Q8H PRN (Reason: severe pain (scale score 7-10)) Qty: 12 0RF Continued lisinopril 5 mg tablet 5 mg PO QAM atenolol 50 mg tablet 50 mg PO QAM escitalopram oxalate 20 mg tablet 20 mg PO QAM PreserVision AREDS-2 250-90-40-1 mg Capsule 1 tab PO [facility]HS multivitamin Tablet 1 tab PO QAM ascorbic acid (vitamin C) [Vitamin C] 500 mg Tablet 500 mg PO DAILY magnesium 200 mg Tablet 400 mg PO DAILY Myrbetriq 25 mg tablet extended release 24 hr 25 mg PO DAILY Discharge Orders: Discharge Order (Routine); Ordered 11/07/23 Ordered By: Sierra Post Admission Data Admit Date/Time: 11/04/23 23:45 Attending Provider: Sierra Post Admit Provider: Mauro Velasquez Primary Care Provider: Jermaine English Other Providers: Mauro Velasquez
== END 2023-11-07 14:52 | disposition home or self-care (01) ==
LOC: ED 18:11 → 3W 18:11

== ENCOUNTER 2024-02-15 22:11 | Inpatient (IN) ==
--- NOTE | 2024-02-15 22:40 | Emergency Department Note ---
Impression & Plan AAA (abdominal aortic aneurysm), Abdominal pain, Syncope, Nausea & vomiting ED Provider Note NAME: CITLALY TRIPP AGE: 88 SEX: M : 1935 ARRIVES VIA: Walk-In INFORMANT: [Patient][, ] ED PROVIDER(S): [Grover Evangelista MD] CHIEF COMPLAINT: Flank pain MEDICAL DECISION MAKING: Patient presented due to concern for flank pain and had an episode of syncope in the triage area was brought back for evaluation. Patient does have a history of a prior AAA without repair. IV was established blood work was obtained and the patient was emergently sent for CT angiography of the abdomen and pelvis. Creatinine was 1.4. Patient was ordered fentanyl. Patient's CT of the abdomen pelvis was reviewed and I was concerned about the patient's size of the aneurysm with possible blood products in the abdomen. I did message the on-call radiologist Dr. Hood did speak with him who stated the patient did have a ruptured AAA. Given this concern I immediately spoke with the patient the patient's family and they would like to discuss whether or not there is any intervention. Esmolol was ordered. I did speak with pharmacy. I did speak with Dr. Baxter and discussed that the patient had been seen by Dr. Espinoza with vascular surgery back in 2020. They had discussed that the patient was not a candidate for open repair at the time. Dr. Baxter stated that this was unlikely to be amenable to repair given the size and catastrophic nature of the rupture. He was able to reviewed the imaging and stated the patient would not be a candidate for surgery. I did speak with the family as well as the patient about this unfortunate news. Unable to obtain hospice or palliative care at this hour. Patient will be admitted for comfort measures and possible discharged home on either hospice or another possible plan. I did speak with the on-call hospitalist Dr. Velasquez patient was admitted to the medicine service. Critical Care: I have personally spent 55 minutes of critical care time in direct management of this patient. This includes bedside care, interpretation of diagnostic studies, and testing, discussion with consultants, patient, and family members, and other require inpatient management activities. This 55 minutes is in excess of all separately billable procedures. Discussion w/ other healthcare providers: Dr. Baxter with vascular surgery Inpatient pharmacy ED case management Dr. Velasquez Prior /Outside records reviewed: [none] Differential diagnosis: AAA, renal colic, UTI, pyelonephritis, appendicitis, diverticulitis, strain, sprain, fracture among others were considered. Diagnostics, as interpreted by me: ECG: [none] Cardiac monitoring: An order was placed for continuous cardiac monitoring. The monitor shows a rate of [] with [] rhythm. [Patient was placed on pulse oximetry] Medical decision rules: [none] Imaging studies: [I informally interpreted the patient's CT angiography of the abdomen pelvis concern for blood in the abdomen and large AAA with formal report to follow.] [] HPI: Patient presents due to concern for right-sided flank pain which been ongoing for several hours prior to arrival but seem to worsen while in triage and reportedly had a syncopal event. Difficulty with obtaining a blood pressure and the patient was clammy. Patient denies any prior history of any kidney stones but does have a prior history of a AAA that he he has not had repaired. Patient denies any blood in urine or stool. No dysuria. Patient did have an episode of nausea and vomiting earlier today as well as a triage. Patient denies any chest pains or shortness of breath. PAST MEDICAL HISTORY: [See Below] PAST SURGICAL HISTORY: [See Below] SOCIAL HISTORY: [See Below] HOME MEDICATIONS: [See Below] ALLERGIES: [See Below] VITALS: [See Below] PHYSICAL EXAMINATION: GENERAL: NAD, non-toxic. EYE EXAM: Normal conjunctiva. PERRL, no anisocoria and EOM's grossly intact w/o pain. OROPHARYNX: Moist mucus membranes, grossly normal dentition. NECK: Trachea midline, no stridor. [Supple, no nuchal rigidity, no adenopathy, non-tender. No signs of meningismus. FROM of the neck with good chin to chest and neck extension.] LUNGS: Clear to auscultation. Normal chest wall mechanics. HEART: NSR, no MRG. ABDOMEN: Abdomen soft, diffuse abdominal pain most prominent in the right side, no obvious overlying ecchymosis no masses, no rebound or guarding. BACK: No CVA TTP. SKIN: No rashes and no bruising. UPPER EXTREMITIES: Upper extremities are grossly normal. LOWER EXTREMITIES: Grossly normal, no edema. Pedal pulses present bilaterally. NEURO EXAM: A&O x3, cranial nerves II-XII grossly intact, normal speech, moves all 4 extremities. Past Med/Surg History Problem List (Updated 02/16/24 @ 00:46 by Grover Evangelista MD) Nausea & vomiting (Acute) Syncope (Acute) Abdominal pain (Acute) Hip pain (Acute) Hip Injury (Acute) CKD (chronic kidney disease), stage III HTN (hypertension) Depression Hematoma (Acute) AAA (abdominal aortic aneurysm) (Acute) GERD (gastroesophageal reflux disease) Dyslipidemia Medical History Abnormal CT scan Compression fx, lumbar spine Back pain Fall Surgical History H/O hernia repair History of cholecystectomy Family History Other Cancer Diabetes Heart disease Social History Smoking Status: Former smoker Tobacco Type: Cigarettes Second Hand Exposure: No; Do You Dip or Chew Tobacco: No; Hx Alcohol Use: No Hx Substance Use: No Preferred Language: Scottish Communication Ability: Effective Phytopathologist Required: No Beliefs That Will Affect Care: None Current Living Situation: Family Current Living Situation Comment: Lives with sonOnesimo Feeldorys Safe at Home: Yes Assistive Devices: Cane and Walker Allergies Allergies Allergy/AdvReac Type Severity Reaction Status Date / Time felodipine AdvReac Intermediate DROWSINESS Verified 02/15/24 23:36 Home Meds Home Medications Medication Instructions Recorded Confirmed atenolol 50 mg tablet 50 mg PO QAM 01/03/21 02/15/24 lisinopril 5 mg tablet 5 mg PO QAM 01/03/21 02/15/24 ascorbic acid (vitamin C) 500 mg 500 mg PO DAILY 11/04/23 02/15/24 tablet (Vitamin C) escitalopram oxalate 20 mg tablet 20 mg PO QAM 11/04/23 02/15/24 magnesium 200 mg tablet 400 mg PO DAILY 11/04/23 02/15/24 mirabegron 25 mg tablet,extended 25 mg PO DAILY 11/04/23 02/15/24 release 24 hr (Myrbetriq) multivitamin See Rx Instructions .Route .COMPLEX 11/04/23 02/15/24 vit C 250 mg-vit E 90 mg-zinc 40 1 tab PO AMHS 11/04/23 02/15/24 mg-copper 1 [id number] capsule (PreserVision AREDS-2) Previous Rx's Medication Instructions Recorded oxycodone 5 mg tablet 5 mg PO Q8H PRN severe pain (scale 11/07/23 score 7-10) #12 tabs Results & Data (ED) Vital Signs Vital Signs - 24 hr 02/15/24 22:11 02/15/24 22:28 02/15/24 22:30 Temperature 36.6 C Temperature Source Oral Pulse Rate 52 L 54 L Respiratory Rate 14 22 Respiratory Effort / Characteristics Non-Labored Spontaneous Respiratory Depth Normal Respiratory Pattern Regular Blood Pressure [Left Arm] 94/63 L Blood Pressure Mean [Left Arm] 73 Pulse Oximetry 98 93 Oxygen Delivery Method Room Air Room Air Sepsis Recent Fever Within 48 Hours No Sepsis New/Unexplained Change in Mental Status No Sepsis Action Taken by Nursing No Action Required 02/15/24 22:30 Temperature Temperature Source Pulse Rate Respiratory Rate Respiratory Effort / Characteristics Respiratory Depth Respiratory Pattern Blood Pressure [Left Arm] Blood Pressure Mean [Left Arm] Pulse Oximetry 93 Oxygen Delivery Method Room Air Sepsis Recent Fever Within 48 Hours Sepsis New/Unexplained Change in Mental Status Sepsis Action Taken by Assisted Medications Current Medication List: was personally reviewed by me Laboratory Data Attestation: I reviewed the patient's lab results. 02/15/24 22:27 02/15/24 22:27 Lab Results 02/15/24 02/15/24 02/15/24 Range/Units 22:27 22:35 22:38 WBC 15.25 H (4.8-10.8) K/ul RBC 3.80 L (4.70-6.10) M/uL Hgb 11.6 L (14.0-18.0) g/dl POC Hgb 11.6 L (14.0-18.0) g/dl Hct 35.9 L (42.0-52.0) % POC Hct 34 L (42-52) % MCV 94.5 (80.0-100.0) fL MCH 30.5 (25.0-34.0) pg MCHC 32.3 (32.0-36.0) g/dL RDW Std Deviation 44.3 (36.4-46.3) fL RDW Coeff of Dean 12.8 (11.5-14.5) % Plt Count 227 (130-400) K/uL MPV 10.0 (9.4-12.4) fL Immature Gran % (Auto) 0.7 % Neut % (Auto) 58.0 % Lymph % (Auto) 33.8 % [place] % (Auto) 6.3 % Eos % (Auto) 0.9 % Baso % (Auto) 0.3 % Neut # (Auto) 8.84 H (1.40-6.50) K/uL Lymph # (Auto) 5.16 H (1.20-3.40) K/uL [place] # (Auto) 0.96 H (0.11-0.59) K/uL Eos # (Auto) 0.13 (0.00-0.50) K/uL Baso # (Auto) 0.05 (0.00-0.20) K/uL Immature Gran # (Auto) 0.11 (0.01-0.20) K/uL RBC Morphology Unremarkable PT 11.2 (9.0-12.0) Seconds INR 1.0 (0.9-1.1) APTT 25 (21-31) Seconds PTT Ratio 0.9 POC Sodium 135 (135-144) mmol/L Sodium 133 L (136-145) mmol/L POC Potassium 4.1 (3.3-5.0) mmol/L Potassium 4.0 (3.5-5.1) mmol/L POC Chloride 102 (101-112) mmol/L Chloride 100 (98-107) mmol/L Carbon Dioxide 24 (21-32) mmol/L POC Total CO2 21 L (24-31) mmol/L Anion Gap 9 (3-11) POC Anion Gap 17.0 (16-25) mmol/L POC BUN 27 H (7-18) mg/dl BUN 28 H (6-23) mg/dl Creatinine 1.35 (0.6-1.4) mg/dl POC Creatinine 1.4 H (0.6-1.3) mg/dl Est Cr Clr Drug Dosing Not Reportable Est GFR ( Amer) 53.9 ml/min Est GFR (Non-Af Amer) 46.5 ml/min BUN/Creatinine Ratio 20.7 H (10-20) Glucose 181 H (70-99(Fasting)) mg/dl POC Glucose (other) 178 H (70-99) mg/dl Calcium 8.7 (8.6-10.3) mg/dl POC Ioniz Calcium Nabila 1.13 (1.12-1.32) mmol/l Total Bilirubin 0.4 (0.2-1.0) mg/dl AST 23 (13-39) U/L ALT 23 (7-52) U/L Alkaline Phosphatase 59 (34-104) U/L Troponin I High Sens 14.9 (0-20) pg/ml Total Protein 7.1 (6.0-8.3) gm/dl Albumin 3.9 (3.4-5.0) gm/dl Globulin 3.2 (2.5-4.0) gm/dl Albumin/Globulin Ratio 1.2 (0.9-2) Lipase 57 (11-82) U/L Blood Type Cancelled Antibody Screen Cancelled 02/15/24 Range/Units 23:10 WBC (4.8-10.8) K/ul RBC (4.70-6.10) M/uL Hgb (14.0-18.0) g/dl POC Hgb (14.0-18.0) g/dl Hct (42.0-52.0) % POC Hct (42-52) % MCV (80.0-100.0) fL MCH (25.0-34.0) pg MCHC (32.0-36.0) g/dL RDW Std Deviation (36.4-46.3) fL RDW Coeff of Dean (11.5-14.5) % Plt Count (130-400) K/uL MPV (9.4-12.4) fL Immature Gran % (Auto) % Neut % (Auto) % Lymph % (Auto) % [place] % (Auto) % Eos % (Auto) % Baso % (Auto) % Neut # (Auto) (1.40-6.50) K/uL Lymph # (Auto) (1.20-3.40) K/uL [place] # (Auto) (0.11-0.59) K/uL Eos # (Auto) (0.00-0.50) K/uL Baso # (Auto) (0.00-0.20) K/uL Immature Gran # (Auto) (0.01-0.20) K/uL RBC Morphology PT (9.0-12.0) Seconds INR (0.9-1.1) APTT (21-31) Seconds PTT Ratio POC Sodium (135-144) mmol/L Sodium (136-145) mmol/L POC Potassium (3.3-5.0) mmol/L Potassium (3.5-5.1) mmol/L POC Chloride (101-112) mmol/L Chloride (98-107) mmol/L Carbon Dioxide (21-32) mmol/L POC Total CO2 (24-31) mmol/L Anion Gap (3-11) POC Anion Gap (16-25) mmol/L POC BUN (7-18) mg/dl BUN (6-23) mg/dl Creatinine (0.6-1.4) mg/dl POC Creatinine (0.6-1.3) mg/dl Est Cr Clr Drug Dosing Est GFR ( Amer) ml/min Est GFR (Non-Af Amer) ml/min BUN/Creatinine Ratio (10-20) Glucose (70-99(Fasting)) mg/dl POC Glucose (other) (70-99) mg/dl Calcium (8.6-10.3) mg/dl POC Ioniz Calcium [place] (1.12-1.32) mmol/l Total Bilirubin (0.2-1.0) mg/dl AST (13-39) U/L ALT (7-52) U/L Alkaline Phosphatase (34-104) U/L Troponin I High Sens (0-20) pg/ml Total Protein (6.0-8.3) gm/dl Albumin (3.4-5.0) gm/dl Globulin (2.5-4.0) gm/dl Albumin/Globulin Ratio (0.9-2) Lipase (11-82) U/L Blood Type A Positive Antibody Screen NEGATIVE Administered Medications Discontinued Medications Fentanyl Citrate (Fentanyl Citrate Pf 100 Mcg/2 Ml Vial) 50 mcg IV NOW STA Stop: 02/15/24 22:39 Last Admin: 02/15/24 23:06 Dose: 50 mcg Documented By: NAW Hydromorphone HCl (Hydromorphone Inj 0.5 Mg/0.5 Ml Syr) 0.5 mg IV NOW STA Stop: 02/15/24 23:32 Last Admin: 02/15/24 23:44 Dose: 0.5 mg Documented By: MARIELLE Sodium Chloride (Nss) 1,000 mls @ 999 mls/hr IV .Q1H1M STA Stop: 02/15/24 23:36 Last Infusion: 02/16/24 00:07 Dose: Infused Documented By: Admin: 02/15/24 23:06 Dose: 999 mls/hr Documented By: MARIELLE Sodium Chloride (Nss) 1,000 mls @ 999 mls/hr IV .Q1H1M ONE Stop: 02/15/24 23:38 Last Admin: 02/15/24 23:40 Dose: Not Given Documented By: MARIELLE Esmolol HCl (Brevibloc) 2,500 mg in 250 mls @ 24.75 mls/hr IV .Q10H7M [facility]; Protocol Stop: 03/16/24 23:14 Last Admin: 02/15/24 23:37 Dose: Not Given Documented By: MARIELLE Ioversol (Optiray 320 125ml) 125 ml IV ONCE ONE Stop: 02/15/24 22:55 Last Admin: 02/15/24 22:54 Dose: 118 ml Documented By: GUY Quiroga (Stat Iv Infusion Titration Per Protocol) 1 each N/A NOW STA Stop: 02/15/24 23:11 Last Admin: 02/15/24 23:37 Dose: Not Given Documented By: MARIELLE Hurtadoaneous (Patient's Height &/Or Weight Needed) 1 each N/A NOW STA Stop: 02/15/24 23:18 Last Admin: 02/15/24 23:40 Dose: Not Given Documented By: MARIELLE Ondansetron HCl (Ondansetron Inj 2 Mg/Ml 2 Ml Vial) 4 mg IV NOW STA Stop: 02/15/24 22:39 Last Admin: 02/15/24 23:06 Dose: 4 mg Documented By: MARIELLE Imaging Data Radiologist's Impression: Abdomen/Pelvis CTA 02/15/24 22:36 CT angio abdomen pelvis w con CT DOSE: 1082.07 mGy.cm CLINICAL HISTORY: h/o AAA, R flank pain, vomiting, syncope TECHNIQUE: Multiaxial CT images of the abdomen and pelvis were performed following the intravenous administration of contrast. A dose lowering technique was utilized adhering to the principles of ALARA. COMPARISON STUDY: Pelvis CT 11/04/2023. Abdomen and pelvis CT 01/03/2021. FINDINGS: Calcified granuloma within the left lung base. The right lung base is clear. There is mild elevation of the left hemidiaphragm. No pneumoperitoneum. No pneumatosis. There is an old L1 compression fracture again noted. No acute fractures. The heart is mildly enlarged. Mild circumferential thickening of the distal esophagus is noted. Prior cholecystectomy. The liver, pancreas, spleen, adrenal glands, and kidneys are unremarkable. No hydronephrosis. 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 No bowel wall thickening or obstruction. Normal appendix. There is again noted a large juxtarenal abdominal aortic aneurysm which measures 18 cm in length and up to 9.1 x 8.7 cm in diameter. Large predominantly right-sided retroperitoneal hematoma which also surrounds the abdominal aortic aneurysm. Therefore, these findings are consistent with a ruptured abdominal aortic aneurysm. This right-sided retroperitoneal hematoma also encases the joint and the distal duodenum and results in anterior displacement of the duodenum. This retroperitoneal hematoma also extends into the right perinephric space. No evidence for active arterial extravasation at this time. The celiac, mesenteric, and left renal arteries are widely patent. There is moderate focal narrowing at the takeoff of the right renal artery due to the calcified plaque. Otherwise, the right renal artery is patent. Bilateral common iliac arteries demonstrate mild aneurysmal dilatation measuring up to 1.8 cm. The external iliac arteries are widely patent. The internal iliac arteries are also dilated and do not fill with contrast. These could be thrombosed. The internal iliac arteries measure up to 2.2 cm in diameter. Dilatation and probable thrombosis involving the bilateral gluteal arteries which remains unchanged. These measure up to 3.2 cm on the right and 3.46 there is an the left IMPRESSION: 1. A 9.1 x 8.7 cm juxtarenal abdominal aortic aneurysm which measures 18 cm in length. There is associated large dominant right-sided retroperitoneal hematoma as described above. Therefore, these findings are consistent with a ruptured abdominal aortic aneurysm. 2. 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 3. Additional findings as described above. 4. This report was discussed with Dr. Evangelista at 11:04 PM on 02/15/2024. ACT 112: Negative or not required by law. Electronically signed by: Gerald Hood M.D. 02/15/2024 11:13 PM Discharge Plan Visit Data Chief Complaint: Vomiting Stated Complaint: VOMITING, ABD PAIN ED Provider: Grover Evangelista Discharge Problem: AAA (abdominal aortic aneurysm), Abdominal pain, Syncope, Nausea & vomiting Forms Stand Alone Forms: [facility] [employer] Prescriptions Prescriptions: No Action lisinopril 5 mg tablet 5 mg PO QAM atenolol 50 mg tablet 50 mg PO QAM escitalopram oxalate 20 mg tablet 20 mg PO QAM PreserVision AREDS-2 250-90-40-1 mg Capsule 1 tab PO AMHS multivitamin Tablet See Rx Instructions .ROUTE .COMPLEX Rx Instructions: PER PT "TAKES 3 TABS QAM, THEN 2 TABS QHS". ascorbic acid (vitamin C) [Vitamin C] 500 mg Tablet 500 mg PO DAILY magnesium 200 mg Tablet 400 mg PO DAILY mirabegron [Myrbetriq] 25 mg tablet extended release 24 hr 25 mg PO DAILY oxycodone 5 mg Tablet 5 mg PO Q8H PRN (Reason: severe pain (scale score 7-10)) Qty: 12 0RF Referrals Referrals: Jermaine English MD [Primary Care Provider] - Discharge Problem: AAA (abdominal aortic aneurysm) Qualifiers: Abdominal aorta location: juxtarenal aorta Presence of rupture: ruptured Q ualified Code(s): I71.32 - Juxtarenal abdominal aortic aneurysm, ruptured Abdominal pain Qualifiers: Abdominal location: right lower quadrant Qualified Code(s): R10.31 - Right lower quadrant pain Syncope Qualifiers: Syncope type: unspecified Qualified Code(s): R55 - Syncope and collapse Nausea & vomiting Qualifiers: Vomiting type: unspecified Qualified Code(s): R11.2 - Nausea with vomiting, unspecified
[2024-02-15 22:51] LABS: iSTAT Creatinine 1.4 mg/dl (0.6-1.3); iSTAT Hemoglobin 11.6 g/dl (14.0-18.0); iSTAT Ionized Calcium 1.13 mmol/l (1.12-1.32); iSTAT Potassium 4.1 mmol/L (3.3-5.0)
[2024-02-15] MEDS: OPTIRAY 320 125ml IV ONE (22:54)
[2024-02-15 22:57] LABS: Hematocrit (blood only) 35.9 % (42.0-52.0); Hemoglobin 11.6 g/dl (14.0-18.0); Mean Corpuscular Hemoglobin 30.5 pg (25.0-34.0); Mean Corpuscular Hgb Conc 32.3 g/dL (32.0-36.0); Mean Corpuscular Volume 94.5 fL (80.0-100.0); Platelet Count 227 K/uL (130-400); RDW Coefficient of Variation 12.8 % (11.5-14.5); RDW Standard Deviation 44.3 fL (36.4-46.3); White Blood Count 15.25 K/ul (4.8-10.8)
[2024-02-15] MEDS: fentaNYL citrate PF 100 MCG/2 ML VIAL IV STA (23:06)
[2024-02-15] MEDS: ONDANSETRON INJ 2 MG/ML 2 ML VIAL IV STA (23:06)
[2024-02-15] MEDS: SODIUM CHLORIDE 0.9% 1,000 ML IV STA (23:06)
[2024-02-15 23:10] LABS: Alanine Aminotransferase 23 U/L (7-52); Albumin Globulin Ratio 1.2 (0.9-2); Albumin Level 3.9 gm/dl (3.4-5.0); Alkaline Phosphatase 59 U/L (34-104); Anion Gap 9 (3-11); Aspartate Aminotransferase 23 U/L (13-39); BUN Creatinine Ratio 20.7 (10-20); Bilirubin,Total 0.4 mg/dl (0.2-1.0); Blood Urea Nitrogen 28 mg/dl (6-23); Calcium 8.7 mg/dl (8.6-10.3); Carbon Dioxide 24 mmol/L (21-32); Chloride 100 mmol/L (98-107); Est GFR (African American) 53.9 ml/min; Est GFR (Non-African American) 46.5 ml/min; Globulin 3.2 gm/dl (2.5-4.0); Glucose 181 mg/dl (70-99(Fasting)); Lipase 57 U/L (11-82); Sodium 133 mmol/L (136-145); Total Protein 7.1 gm/dl (6.0-8.3)
[2024-02-15 23:15] LABS: Troponin I High Sensitivity 14.9 pg/ml (0-20)
--- NOTE | 2024-02-15 23:15 | CT Scan Report ---
CT angio abdomen pelvis w con CT DOSE: 1082.07 mGy.cm CLINICAL HISTORY: h/o AAA, R flank pain, vomiting, syncope TECHNIQUE: Multiaxial CT images of the abdomen and pelvis were performed following the intravenous ad ministration of contrast. A dose lowering technique was utilized adhering to the principles of ALARA . COMPARISON STUDY: Pelvis CT 11/04/2023. Abdomen and pelvis CT 01/03/2021. FINDINGS: Calcified granuloma within the left lung base. The right lung base is clear. There is mild elevation of the left hemidiaphragm. No pneumoperitoneum. No pneumatosis. There is an old L1 compress ion fracture again noted. No acute fractures. The heart is mildly enlarged. Mild circumferential thic kening of the distal esophagus is noted. Prior cholecystectomy. The liver, pancreas, spleen, adrenal glands, and kidneys are unremarkable. No hydronephrosis. Mild bladder wall thickening is likely due t o chronic outlet obstruction from the enlarged prostate gland. No bowel wall thickening or obstructio n. Normal appendix. There is again noted a large juxtarenal abdominal aortic aneurysm which measures 18 cm in length and up to 9.1 x 8.7 cm in diameter. Large predominantly right-sided retroperitoneal h ematoma which also surrounds the abdominal aortic aneurysm. Therefore, these findings are consistent with a ruptured abdominal aortic aneurysm. This right-sided retroperitoneal hematoma also encases the joint and the distal duodenum and results in anterior displacement of the duodenum. This retroperito raj hematoma also extends into the right perinephric space. No evidence for active arterial extravas ation at this time. The celiac, mesenteric, and left renal arteries are widely patent. There is moder ate focal narrowing at the takeoff of the right renal artery due to the calcified plaque. Otherwise, the right renal artery is patent. Bilateral common iliac arteries demonstrate mild aneurysmal dilatat ion measuring up to 1.8 cm. The external iliac arteries are widely patent. The internal iliac arterie s are also dilated and do not fill with contrast. These could be thrombosed. The internal iliac arter ies measure up to 2.2 cm in diameter. Dilatation and probable thrombosis involving the bilateral glut eal arteries which remains unchanged. These measure up to 3.2 cm on the right and 3.46 there is an th e left IMPRESSION: 1. A 9.1 x 8.7 cm juxtarenal abdominal aortic aneurysm which measures 18 cm in length. There is assoc iated large dominant right-sided retroperitoneal hematoma as described above. Therefore, these findin gs are consistent with a ruptured abdominal aortic aneurysm. 2. 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 3. Additional findings as described above. 4. This report was discussed with Dr. Evangelista at 11:04 PM on 02/15/2024. ACT 112: Negative or not required by law. Electronically signed by: Gerald Hood M.D. 02/15/2024 11:13 PM
[2024-02-15 23:21] LABS: Basophils # (auto) 0.05 K/uL (0.00-0.20); Basophils % (auto) 0.3 %; Eosinophils # (auto) 0.13 K/uL (0.00-0.50); Eosinophils % (auto) 0.9 %; Immature Granulocytes # (auto) 0.11 K/uL (0.01-0.20); Immature Granulocytes % (auto) 0.7 %; Lymphocytes # (auto) 5.16 K/uL (1.20-3.40); Lymphocytes % (auto) 33.8 %; Monocytes # (auto) 0.96 K/uL (0.11-0.59); Monocytes % (auto) 6.3 %; Neutrophils # (auto) 8.84 K/uL (1.40-6.50); RBC Morphology Unremarkable
[2024-02-15] MEDS: ESMOLOL / NSS 2,500 MG/250 ML BAG IV SCH (23:37)
[2024-02-15] MEDS: STAT IV Infusion **Titration per Protocol STA (23:37)
[2024-02-15] MEDS: Patient's HEIGHT &/or WEIGHT Needed STA (23:40)
[2024-02-15] MEDS: SODIUM CHLORIDE 0.9% 1,000 ML IV ONE (23:40)
[2024-02-15] MEDS: HYDROmorphone INJ 0.5 MG/0.5 ML SYR IV STA (23:44)
[2024-02-15 23:45] LABS: Partial Thromboplastin Ratio 0.9; Partial Thromboplastin Time 25 Seconds (21-31); Prothrombin Time 11.2 Seconds (9.0-12.0)
--- NOTE | 2024-02-16 00:56 | History & Physical Report ---
Date of Service February 16, 2024 Assessment & Plan (1) AAA (abdominal aortic aneurysm): Plan: Ruptured AAA causing retroperitoneal bleed Patient previously not interested in intervention. Not amenable to surgical intervention as per ED provider with [facility] vascular rao tino on-call (Dr. Baxter.) Palliative care recommended and patient/family accept recommendations. Patient wants to at home but is not sure about pain control. Admit to [facility] Comfort measures Case management Re: Home hospice arrangements DNR Patient son requesting updates providers. Mr. Onesimo Olivares, contact #[phone]. Text document was generated using [employer] voice recognition software. It may contain grammatical or spelling errors. Kindly contact undersigned for clarification of any documentation item in question. History of Present Illness Chief Complaint: Right-sided abdominal pain Primary Care Provider: Dr. Holloway History obtained from patient, family, and records. Medical history significant for AAA, hypertension, hyperlipidemia, mood disorder, past tobacco abuse. Last confinement October 2023 for traumatic gluteal hematoma. Enlarging AAA measuring 7.8 cm on imaging. Patient had previously decided not to pursue treatment as per records. Patient had sudden onset achy right hip/abdominal pain last night. Somewhat worse with walking. No chest pain, no SOB, no dizziness or lightheadedness. No recollection of recent trauma. Patient brought to ER for evaluation. CT abdomen pelvis showed 9.1 x 8.7 cm juxtarenal abdominal aortic aneurysm which measures 18 cm in length with associated large dominant right-sided retroperitoneal hematoma. Medical History as above Surgical History : Hernia repair, cholecystectomy, Family History : DM, heart disease Personal/Social history : Past tobacco abuse, no EtOH intake, retired from maintenance work Allergies Allergy/AdvReac Type Severity Reaction Status Date / Time felodipine AdvReac Intermediate DROWSINESS Verified 02/15/24 23:36 Home Medications Medication Instructions Recorded Confirmed Type atenolol 50 mg tablet 50 mg PO QAM 01/03/21 02/15/24 History lisinopril 5 mg tablet 5 mg PO QAM 01/03/21 02/15/24 History ascorbic acid (vitamin C) 500 mg 500 mg PO DAILY 11/04/23 02/15/24 History tablet (Vitamin C) escitalopram oxalate 20 mg tablet 20 mg PO QAM 11/04/23 02/15/24 History magnesium 200 mg tablet 400 mg PO DAILY 11/04/23 02/15/24 History mirabegron 25 mg tablet,extended 25 mg PO DAILY 11/04/23 02/15/24 History release 24 hr (Myrbetriq) multivitamin See Rx Instructions .Route .COMPLEX 11/04/23 02/15/24 History vit C 250 mg-vit E 90 mg-zinc 40 1 tab PO AMHS 11/04/23 02/15/24 History mg-copper 1 [id number] capsule (PreserVision AREDS-2) oxycodone 5 mg tablet 5 mg PO Q8H PRN severe pain (scale 11/07/23 02/15/24 Rx score 7-10) #12 tabs Past Med/Surg History Problem List (Updated 02/16/24 @ 00:46 by Grover Evangelista MD) Nausea & vomiting (Acute) Syncope (Acute) Abdominal pain (Acute) Hip pain (Acute) Hip Injury (Acute) CKD (chronic kidney disease), stage III HTN (hypertension) Depression Hematoma (Acute) AAA (abdominal aortic aneurysm) (Acute) GERD (gastroesophageal reflux disease) Dyslipidemia Medical History Abnormal CT scan Compression fx, lumbar spine Back pain Fall Surgical History H/O hernia repair History of cholecystectomy Family History Other Cancer Diabetes Heart disease Social History Smoking Status: Former smoker Tobacco Type: Cigarettes Second Hand Exposure: No; Do You Dip or Chew Tobacco: No; Hx Alcohol Use: No Hx Substance Use: No Preferred Language: Belarusian Communication Ability: Effective Tariff Inspector Required: No Beliefs That Will Affect Care: None Current Living Situation: Family Current Living Situation Comment: Lives with sonOnesimo Other Information That Helps Us Care for You: No Feels Safe at Home: Yes Safety Concerns: Feels Safe At This Time Assistive Devices: Cane, Denture - Upper, Denture - Lower and Glasses Review of Systems Review of Systems: As per HPI, all other systems reviewed and negative Physical Exam Physical Exam: GENERAL: Comfortable, pleasant, no respiratory distress SKIN: Pallor, warm HEENT: Alopecia, pale palpebral conjunctivae, no ptosis, dry buccal mucosa NECK : Supple, no tenderness CHEST : CTA, no tenderness HEART : Bradycardic, no obvious murmurs ABDOMEN: Some distention, right-sided tenderness EXTREMITIES : No LE swelling/tenderness, no other conspicuous deformities noted NEUROLOGIC : Coherent, no facial asymmetry, no other gross focality Results & Data Results & Data Vital Signs (Past 12 Hours) Vital Signs Temp Pulse Resp BP Pulse Ox O2 Del Method 02/15/24 22:30 93 Room Air 02/15/24 22:30 22 94/63 L 93 Room Air 02/15/24 22:28 54 L 02/15/24 22:11 36.6 C 52 L 14 98 Room Air Laboratory Results Laboratory Results WBC 15.25 K/ul (4.8-10.8) H 02/15/24 22: RBC 3.80 M/uL (4.70-6.10) L 02/15/24 22: Hgb 11.6 g/dl (14.0-18.0) L 02/15/24 22: POC Hgb 11.6 g/dl (14.0-18.0) L 02/15/24 22:38 Hct 35.9 % (42.0-52.0) L 02/15/24 22: POC Hct 34 % (42-52) L 02/15/24 22:38 MCV 94.5 fL (80.0-100.0) 02/15/24: MCH 30.5 pg (25.0-34.0) 02/15/24: MCHC 32.3 g/dL (32.0-36.0) 02/15/24: RDW Std Deviation 44.3 fL (36.4-46.3) 02/15/24: RDW Coeff of Dean 12.8 % (11.5-14.5) 02/15/24: Plt Count 227 K/uL (130-400) 02/15/24 22: MPV 10.0 fL (9.4-12.4) 02/15/24: Immature Gran % (Auto) 0.7 % 02/15/24: Neut % (Auto) 58.0 % 02/15/24: Lymph % (Auto) 33.8 % 02/15/24 22: Pickett % (Auto) 6.3 % 02/15/24: Eos % (Auto) 0.9 % 02/15/24: Baso % (Auto) 0.3 % 02/15/24: Neut # (Auto) 8.84 K/uL (1.40-6.50) H 02/15/24: Lymph # (Auto) 5.16 K/uL (1.20-3.40) H 02/15/24 22: Pickett # (Auto) 0.96 K/uL (0.11-0.59) H 02/15/24: Eos # (Auto) 0.13 K/uL (0.00-0.50) 02/15/24: Baso # (Auto) 0.05 K/uL (0.00-0.20) 02/15/24: Immature Gran # (Auto) 0.11 K/uL (0.01-0.20) 02/15/24 22: RBC Morphology Unremarkable 02/15/24 22: PT 11.2 Seconds (9.0-12.0) 02/15/24: INR 1.0 (0.9-1.1) 02/15/24: APTT 25 Seconds (21-31) 02/15/24: PTT Ratio 0.9 02/15/24 22: POC Sodium 135 mmol/L (135-144) 02/15/24 22: Sodium 133 mmol/L (136-145) L 02/15/24 22: POC Potassium 4.1 mmol/L (3.3-5.0) 02/15/24 22: Potassium 4.0 mmol/L (3.5-5.1) 02/15/24 22: POC Chloride 102 mmol/L (101-112) 02/15/24 22: Chloride 100 mmol/L (98-107) 02/15/24 22: Carbon Dioxide 24 mmol/L (21-32) 02/15/24 22: POC Total CO2 21 mmol/L (24-31) L 02/15/24 22:38 Anion Gap 9 (3-11) 02/15/24 22:27 POC Anion Gap 17.0 mmol/L (16-25) 02/15/24 22:38 POC BUN 27 mg/dl (7-18) H 02/15/24 22:38 BUN 28 mg/dl (6-23) H 02/15/24 22:27 Creatinine 1.35 mg/dl (0.6-1.4) 02/15/24 22:27 POC Creatinine 1.4 mg/dl (0.6-1.3) H 02/15/24 22:38 Est Cr Clr Drug Dosing Not Reportable 02/15/24 22:27 Est GFR ( Amer) 53.9 ml/min 02/15/24 22:27 Est GFR (Non-Af Amer) 46.5 ml/min 02/15/24 22: BUN/Creatinine Ratio 20.7 (10-20) H 02/15/24 22:27 Glucose 181 mg/dl (70-99(Fasting)) H 02/15/24 22:27 POC Glucose (other) 178 mg/dl (70-99) H 02/15/24 22:38 Calcium 8.7 mg/dl (8.6-10.3) 02/15/24 22:27 POC Ioniz Calcium Nabila 1.13 mmol/l (1.12-1.32) 02/15/24 22:38 Total Bilirubin 0.4 mg/dl (0.2-1.0) 02/15/24 22:27 AST 23 U/L (13-39) 02/15/24 22:27 ALT 23 U/L (7-52) 02/15/24 22:27 Alkaline Phosphatase 59 U/L (34-104) 02/15/24 22:27 Troponin I High Sens 14.9 pg/ml (0-20) 02/15/24 22:27 Total Protein 7.1 gm/dl (6.0-8.3) 02/15/24 22:27 Albumin 3.9 gm/dl (3.4-5.0) 02/15/24 22:27 Globulin 3.2 gm/dl (2.5-4.0) 02/15/24 22:27 Albumin/Globulin Ratio 1.2 (0.9-2) 02/15/24 22:27 Lipase 57 U/L (11-82) 02/15/24 22:27 Blood Type A Positive 02/15/24 23:10 Antibody Screen NEGATIVE 02/15/24 23:10 Impressions Abdomen/Pelvis CTA 02/15/24 22:36 CT angio abdomen pelvis w con CT DOSE: 1082.07 mGy.cm CLINICAL HISTORY: h/o AAA, R flank pain, vomiting, syncope TECHNIQUE: Multiaxial CT images of the abdomen and pelvis were performed following the intravenous administration of contrast. A dose lowering technique was utilized adhering to the principles of ALARA. COMPARISON STUDY: Pelvis CT 11/04/2023. Abdomen and pelvis CT 01/03/2021. FINDINGS: Calcified granuloma within the left lung base. The right lung base is clear. There is mild elevation of the left hemidiaphragm. No pneumoperitoneum. No pneumatosis. There is an old L1 compression fracture again noted. No acute fractures. The heart is mildly enlarged. Mild circumferential thickening of the distal esophagus is noted. Prior cholecystectomy. The liver, pancreas, spleen, adrenal glands, and kidneys are unremarkable. No hydronephrosis. 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 No bowel wall thickening or obstruction. Normal appendix. There is again noted a large juxtarenal abdominal aortic aneurysm which measures 18 cm in length and up to 9.1 x 8.7 cm in diameter. Large predominantly right-sided retroperitoneal hematoma which also surrounds the abdominal aortic aneurysm. Therefore, these findings are consistent with a ruptured abdominal aortic aneurysm. This right-sided retroperitoneal hematoma also encases the joint and the distal duodenum and results in anterior displacement of the duodenum. This retroperitoneal hematoma also extends into the right perinephric space. No evidence for active arterial extravasation at this time. The celiac, mesenteric, and left renal arteries are widely patent. There is moderate focal narrowing at the takeoff of the right renal artery due to the calcified plaque. Otherwise, the right renal artery is patent. Bilateral common iliac arteries demonstrate mild aneurysmal dilatation measuring up to 1.8 cm. The external iliac arteries are widely patent. The internal iliac arteries are also dilated and do not fill with contrast. These could be thrombosed. The internal iliac arteries measure up to 2.2 cm in diameter. Dilatation and probable thrombosis involving the bilateral gluteal arteries which remains unchanged. These measure up to 3.2 cm on the right and 3.46 there is an the left IMPRESSION: 1. A 9.1 x 8.7 cm juxtarenal abdominal aortic aneurysm which measures 18 cm in length. There is associated large dominant right-sided retroperitoneal hematoma as described above. Therefore, these findings are consistent with a ruptured abdominal aortic aneurysm. 2. 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 3. Additional findings as described above. 4. This report was discussed with Dr. Evangelista at 11:04 PM on 02/15/2024. ACT 112: Negative or not required by law. Electronically signed by: Gerald Hood M.D. 02/15/2024 11:13 PM Diagnostic Findings EKG as per my interpretation :Rate 55, sinus bradycardia, LAD, LAFB, LVH, septal infarct, T wave abnormalities lateral leads, PVCs (1) AAA (abdominal aortic aneurysm) Abdominal aorta location: juxtarenal aorta Presence of rupture: ruptured Qualified Code(s): I71.32 - Juxtarenal abdominal aortic aneurysm, ruptured
[2024-02-16] MEDS ORDERED: MoRPHine SULFATE 10 MG/0.5 ML UDP PO PRN (00:59)
[2024-02-16] MEDS ORDERED: LORazepam 0.5 MG TAB PO PRN (00:59)
[2024-02-16] MEDS ORDERED: ONDANSETRON 4 MG OD TAB SL PRN (00:59)
[2024-02-16] MEDS: MoRPHine SULFATE 2 MG/ML CARP IV PRN (01:50)
[2024-02-16] MEDS: LORazepam 0.5 MG in SYRINGE 0.25 ML IV PRN (05:00)
[2024-02-16] MEDS: ONDANSETRON INJ 2 MG/ML 2 ML VIAL IV PRN (05:55)
--- NOTE | 2024-02-16 06:57 | XRay Report ---
XR chest 1V portable CLINICAL HISTORY: Chest pain, nonspecific TECHNIQUE: Single frontal radiograph of the chest was obtained. Comparison: Comparison is made to chest radiograph 01/03/2021 FINDINGS: No lines and tubes are seen. The cardiomediastinal silhouette is normal. The lungs are clear. No evid ence of pleural effusion or pneumothorax. IMPRESSION: No acute chest disease. ACT 112: Negative or not required by law. Electronically signed by: Anthony Marquez M.D. 02/16/2024 6:57 AM
--- NOTE | 2024-02-16 14:53 | Communication Note ---
Date of Service: February 16, 2024 Patient is currently not alert, oriented Opens eye briefly to noxious stimuli Discussed with son and grandson. They were initially planning on going home on comfort this evening They reported patient has not been coherent since 3.30AM Reviewed findings with them and concern that with rapid decline in the past 10hrs, patient may not make it home CM notified me that after son discussed with rest of the family, they will like to defer dc to tomorrow AM if patient is still alive. Continue supportive care and comfort measures only
[2024-02-16] MEDS: GLYCOPYRROLATE 0.2 MG/ML VIAL IV PRN (18:12)
--- NOTE | 2024-02-16 19:49 | Death Pronouncement Note ---
Date of Service February 16, 2024 Pronouncement Note Admission Date February 16, 2024 Date and Time of Date of : 02/16/24 Time of : 19:27 Additional Data Confirmation of : no pulse, no respirations, no heart sounds and pupils fixed and dilated Family: at bedside Attending physician: Dudley Flor MD
--- NOTE | 2024-02-17 06:59 | Electrocardiogram Report ---
Test Reason : Blood Pressure : / mmHG Vent. Rate : 053 BPM Atrial Rate : 053 BPM P-R Int : 246 ms QRS Dur : 118 ms QT Int : 472 ms P-R-T Axes : 017 -47 094 degrees QTc Int : 442 ms Sinus bradycardia with 1st degree A-V block with occasional Premature ventricular complexes Left axis deviation Left ventricular hypertrophy with QRS widening ( R in aVL , Banner product ) Septal infarct , age undetermined Abnormal ECG When compared with ECG of 03-JAN-2021 16:46, Premature ventricular complexes are now Present Minimal criteria for Septal infarct are now Present Confirmed by José Gamez ([id number]) on 02/17/2024 6:59:06 AM Referred By: REFERRED SELF Confirmed By:José Gamez
--- NOTE | 2024-02-17 07:31 | Discharge Summary ---
Date of Service February 16, 2024 Admission HPI Per Admitting Provider History obtained from patient, family, and records. Medical history significant for AAA, hypertension, hyperlipidemia, mood disorder, past tobacco abuse. Last confinement October 2023 for traumatic gluteal hematoma. Enlarging AAA measuring 7.8 cm on imaging. Patient had previously decided not to pursue treatment as per records. Patient had sudden onset achy right hip/abdominal pain last night. Somewhat worse with walking. No chest pain, no SOB, no dizziness or lightheadedness. No recollection of recent trauma. Patient brought to ER for evaluation. CT abdomen pelvis showed 9.1 x 8.7 cm juxtarenal abdominal aortic aneurysm which measures 18 cm in length with associated large dominant right-sided retroperitoneal hematoma. Medical History as above Surgical History : Hernia repair, cholecystectomy, Family History : DM, heart disease Personal/Social history : Past tobacco abuse, no EtOH intake, retired from maintenance work Admission Exam Per Admitting Provider GENERAL: Comfortable, pleasant, no respiratory distress SKIN: Pallor, warm HEENT: Alopecia, pale palpebral conjunctivae, no ptosis, dry buccal mucosa NECK : Supple, no tenderness CHEST : CTA, no tenderness HEART : Bradycardic, no obvious murmurs ABDOMEN: Some distention, right-sided tenderness EXTREMITIES : No LE swelling/tenderness, no other conspicuous deformities noted NEUROLOGIC : Coherent, no facial asymmetry, no other gross focality Principal Diagnosis Ruptured Abdominal Aortic Aneurysm Discharge Exam Discharge Data Allergies Allergy/AdvReac Type Severity Reaction Status Date / Time felodipine AdvReac Intermediate DROWSINESS Verified 02/15/24 23:36 Consultations 02/15/24 23:39 ED Decision to Admit Stat Ordered Studies 02/15/24 22:36 CT angio abdomen pelvis w con Stat Hospital Course (1) Ruptured abdominal aortic aneurysm (AAA): (2) AAA (abdominal aortic aneurysm): 88 year old man with h/o AAA, hypertension, hyperlipidemia, mood disorder, past tobacco abuse who presented with abdominal pain CT abdomen and pelvis noted 9.1 x 8.7 cm juxtarenal abdominal aortic aneurysm which measures 18 cm in length, associated with large abdominal right-sided retroperitoneal hematoma consistent with ruptured abdominal aortic aneurysm. Other findings include aneurysmal dilatation of the bilateral common iliac, internal iliac and gluteal arteries. Not amenable to surgical intervention as per ED provider discussion with [facility] [place] on-[place] (Dr. Baxter.) Patient was started on comfort measures per patient/family's wishes Patient on 02/16/24 at 7:27 PM Total Time Total Time Spent Total Time Spent (In Minutes): 10 Discharge Plan Discharge Items Patient Disposition: Other Date/Time: 02/16/24 19:27
== END 2024-02-16 22:02 | disposition expired | DRG 951 ==
LOC: ED 22:11 → 3E 02-16 00:58